=== PATIENT | male | born 1950 | race Caucasian/White ===

== ENCOUNTER 2019-06-06 07:24 | Emergency (ER) | payer MEDICARE, SELFPAY ==
[2019-06-06] VITALS (7 sets, daily range): BP systolic 124–146; BP diastolic 69–97; PULSE 67–83; RESP 16–20; TEMP 36.7; O2SAT 94–99; BMI 37.9
--- NOTE | 2019-06-06 07:43 | DI.RAD.S_ITS ---
PROCEDURE: XR CHEST 1V INDICATIONS: Possible stroke TECHNIQUE: One view of the chest was acquired. COMPARISON: None. FINDINGS: Surgical changes and devices: None. Lungs and pleura: Lungs are clear. No pleural effusions or pneumothorax. Mediastinum: Mediastinal contours appear normal. Heart size is normal. Bones and chest wall: No suspicious bony lesions. Overlying soft tissues appear unremarkable. IMPRESSION: No acute cardiopulmonary disease process. Dictated by: Imelda Ulloa MD, PhD on 06/06/2019 at 8:15 Approved by: Imelda Ulloa MD, PhD on 06/06/2019 at 8:15
--- NOTE | 2019-06-06 07:43 | ED_ITS ---
HPI - General Adult General Chief complaint: Dizziness Stated complaint: N/V Time Seen by Provider: 06/06/19 07:25 Source: patient Mode of arrival: EMS Limitations: no limitations History of Present Illness HPI narrative: 68-year-old gentleman with type 2 diabetes hyperlipidemia hypertension was awoken dramatically this morning with an episode of acute vertigo. Was associated with nausea and diaphoresis no pain and no dyspnea. He felt that the room was ?taking by? rather than spinning or typical explanations that are usually associated with complaints of vertigo. He states he was in his usual state of health when he went to bed and has no complaints of unusual medical or physical symptoms in the preceding number of weeks. He reports no focal neurologic deficits, no vision acuity or auditory changes. He got dressed and was going to drive himself to the emergency room but had another episode of acute nausea associated with dizziness and ended up calling 911. Once medics arrived he became profusely diaphoretic that was alleviated somewhat with the addition of Zofran. Upon arrival in the emergency department he is awake appropriate and able to give a complete and coherent history . Denies prior stroke or cardiac events. Related Data Home Medications Medication Instructions Recorded Confirmed aspirin [Adult Low Dose Aspirin] 81 mg PO DAILY 06/06/19 06/06/19 glipizide 10 mg PO BID 06/06/19 06/06/19 levothyroxine 200 mcg PO DAILY 06/06/19 06/06/19 metformin 1,000 mg PO BID 06/06/19 06/06/19 valsartan-hydrochlorothiazide 1 tab PO DAILY 06/06/19 06/06/19 Allergies Allergy/AdvReac Type Severity Reaction Status Date / Time losartan AdvReac Cough Verified 06/06/19 07:43 Review of Systems Review of Systems Narrative: All systems reviewed and are unremarkable except as noted in HPI and below Patient History Medical History Hyperlipidemia (Acute) Hypothyroidism (acquired) (Acute) Type 2 diabetes mellitus (Acute) Social History Smoking Status: Never smoker Smoking Status: Never smoker alcohol intake frequency: a few times a week Alcohol type: beer Substance Use Type: marijuana Exam Narrative Exam Narrative: General: Healthy appearing, mildly diaphoretic but in no acute distress. Able to give a complete and coherent history. Well-nourished well- developed HEENT: Moist mucous membranes, normal sclera with reactive pupils, no nystagmus with any positional movements. Neck: No JVD, supple Respiratory: Lungs are clear to auscultation, no wheezing no rales no rhonchi. Full and symmetrical air movement Cardiac: Regular rate and rhythm no murmurs no bruits Abdomen: Soft nontender good bowel tones, no flank pain Skin: Warm and dry, no rashes Neurologic: Grossly neurologically intact with no obvious asymmetries or abnormalities, normal speech fluency and not complaining of global weakness Extremities: No trauma, well perfused Psych: Cooperative, appropriate insight and affect Initial Vital Signs Initial Vital Signs: Vital Signs Temperature 98.0 F 06/06/19 07:33 Pulse Rate 83 06/06/19 07:33 Respiratory Rate 16 06/06/19 07:33 Blood Pressure 143/97 H 06/06/19 07:33 Pulse Oximetry 94 06/06/19 07:33 Course Orders Ordered: ED Orders 06/06/19 07:43 CT Stroke Stat XR chest 1V Stat Urine Drug Screen, Rapid Stat EKG-12 Lead Stat 06/06/19 07:50 Complete Blood Count AUTO DIFF Stat Comprehensive Metabolic Panel Stat Partial Thromboplastin Time Stat Prothrombin Time INR Stat Troponin & CK Cardiac Panel Stat 06/06/19 10:43 EKG-12 Lead Stat 06/06/19 10:51 Troponin I Stat Discontinued Medications Aspirin (Aspirin Chew) 324 mg PO NOW ONE Stop: 06/06/19 07:45 Last Admin: 06/06/19 07:52 Dose: 324 mg Documented by: RIC Sodium Chloride (Normal Saline 0.9%) 1,000 mls @ 1,000 mls/hr IV BOLUS ONE Stop: 06/06/19 09:42 Last Infusion: 06/06/19 10:07 Dose: 0 mls/hr Documented by: Admin: 06/06/19 08:51 Dose: 1,000 mls/hr Documented by: RIC Vital Signs Vital signs: Vital Signs - 8 hr 06/06/19 07:33 06/06/19 08:13 06/06/19 09:10 Temperature 98.0 F Pulse Rate 83 80 70 Respiratory Rate 16 20 16 Blood Pressure 143/97 H Blood Pressure [Left Arm] 146/87 H 130/70 Pulse Oximetry 94 96 06/06/19 09:50 06/06/19 10:04 06/06/19 10:54 Temperature Pulse Rate 70 67 70 Respiratory Rate 16 16 16 Blood Pressure Blood Pressure [Left Arm] 130/70 124/74 138/69 Pulse Oximetry 99 97 98 Medical Decision Making Medical Records Medical records reviewed: Yes I reviewed the patient's medical records. Lab Data Lab results reviewed: Yes I reviewed the patient's lab results. Result diagrams: 06/06/19 07:50 06/06/19 07:50 Labs: Lab Results 06/06/19 06/06/19 06/06/19 Range/Units 07:50 07:50 07:50 WBC 7.9 (4.5-11.0) X10^3/uL RBC 4.67 (4.5-5.9) X10^6/uL Hgb 14.5 (13.5-17.5) g/dL Hct 42.3 (41-53) % MCV 90.6 (80-100) fL MCH 31.0 (26-34) PG MCHC 34.2 (30-36) % RDW 13.0 (11.6-14.8) % Plt Count 182 (150-400) X10^3/uL Neut % (Auto) 51.0 (50-75) % Lymph % (Auto) 33.9 (25-40) % [place] % (Auto) 11.4 (3-14) % Eos % (Auto) 3.2 (2-4) % Baso % (Auto) 0.5 (0-2) % Neut # (Auto) 4000 (6230-2447) /uL Lymph # (Auto) 2700 (1708-5308) /uL [place] # (Auto) 900 (0-900) /uL Eos # (Auto) 300 (0-450) /uL Baso # (Auto) 0 (0-100) /uL PT 10.7 (10.1-12.7) SECONDS INR 0.9 (0.9-1.3) APTT 28 (26.4-36.2) SECONDS Sodium 135 L (137-145) mmol/L Potassium 4.0 (3.4-5.1) mmol/L Chloride 102 (98-107) mmol/L Carbon Dioxide 23 (22-32) mmol/L BUN 19 (9-20) mg/dL Creatinine 0.99 (0.66-1.25) mg/dL Estimated GFR > 60.0 (>60) mL/min BUN/Creatinine Ratio 19.2 (6-22) Glucose 269 H (80-110) mg/dL Calcium 9.3 (8.4-10.2) mg/dL Total Bilirubin 0.4 (0.2-1.3) mg/dL AST 23 (17-59) IU/L ALT 22 (<50) IU/L Alkaline Phosphatase 65 (38-126) U/L Total Creatine Kinase 58 (55-170) U/L CK-MB (CK-2) TNP CK-MB (CK-2) Rel Index TNP Troponin I < 0.012 (0.01-0.034) ng/mL Total Protein 7.1 (6.3-8.2) g/dL Albumin 4.3 (3.5-5.0) g/dL Globulin 2.8 (1.7-4.1) g/dL Albumin/Globulin Ratio 1.5 (1.0-2.8) 06/06/19 Range/Units 10:51 WBC (4.5-11.0) X10^3/uL RBC (4.5-5.9) X10^6/uL Hgb (13.5-17.5) g/dL Hct (41-53) % MCV (80-100) fL MCH (26-34) PG MCHC (30-36) % RDW (11.6-14.8) % Plt Count (150-400) X10^3/uL Neut % (Auto) (50-75) % Lymph % (Auto) (25-40) % [place] % (Auto) (3-14) % Eos % (Auto) (2-4) % Baso % (Auto) (0-2) % Neut # (Auto) (4256-8483) /uL Lymph # (Auto) (7007-0346) /uL [place] # (Auto) (0-900) /uL Eos # (Auto) (0-450) /uL Baso # (Auto) (0-100) /uL PT (10.1-12.7) SECONDS INR (0.9-1.3) APTT (26.4-36.2) SECONDS Sodium (137-145) mmol/L Potassium (3.4-5.1) mmol/L Chloride (98-107) mmol/L Carbon Dioxide (22-32) mmol/L BUN (9-20) mg/dL Creatinine (0.66-1.25) mg/dL Estimated GFR (>60) mL/min BUN/Creatinine Ratio (6-22) Glucose (80-110) mg/dL Calcium (8.4-10.2) mg/dL Total Bilirubin (0.2-1.3) mg/dL AST (17-59) IU/L ALT (<50) IU/L Alkaline Phosphatase (38-126) U/L Total Creatine Kinase (55-170) U/L CK-MB (CK-2) CK-MB (CK-2) Rel Index Troponin I < 0.012 (0.01-0.034) ng/mL Total Protein (6.3-8.2) g/dL Albumin (3.5-5.0) g/dL Globulin (1.7-4.1) g/dL Albumin/Globulin Ratio (1.0-2.8) Imaging Data CT scan - head: Radiologist's Impression: Verbal interaction with Radiology, Dr. Ulloa. Negative head CT. ECG Data Attestation: I personally reviewed and interpreted this ECG as follows: Interpretation: Normal sinus rhythm at a rate of 80 Occasional PVC Left axis deviation No evidence of ischemia MDM Narrative Medical decision making narrative: Patient typically uses THC to help sleep at night. Last night he notes that he had a couple of extra drinks. This combination may be contributing however he certainly is showing no signs of intoxication or impairment this time. Initial workup is relatively unremarkable. Will give him a L of fluid on the off chance that there is a bit of dehydration/hangover from the drinking last night. Will repeat a 2 hour troponin and EKG and if he remains clinically asymptomatic and doing well anticipate discharge after those decision-making points have been evaluated. Repeat troponin is negative. The possibility of Meniere's disease or vestibular neuritis are entertained but felt to be less likely at this point. 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 If he continues to have episodes of recurrent vertigo he will follow-up with his primary care physician and may eventually need referral to ENT Discharge Plan Departure Patient Disposition: Home Clinical Impression: Vertigo Instructions: Orthostatic Hypotension Activity Restrictions/Additional Instructions: Thank you for coming in today Your evaluation today included a head CT, blood work, chest x-ray, EKG with repeat cardiac enzymes and the entire workup was quite reassuring. I did not find any life-threatening explanation for your symptoms. I suspect that the extra drinking and not drinking quite enough plain water last night probably contributed. I would encourage you to keep yourself hydrated enough that your urine is consistently light yellow. If you have recurrent symptoms, headaches, fevers, difficulty speaking or thinking, developed any numbness tingling or chest pain would be very appropriate to return to the emergency department for re-evaluation. Prescriptions: No Action aspirin [Adult Low Dose Aspirin] 81 mg Tablet,Delayed Release (Dr/Ec) 81 mg PO DAILY RF: 0 glipizide 10 mg Tablet 10 mg PO BID RF: 0 metformin 1,000 mg Tablet Extended Release 24hr 1,000 mg PO BID RF: 0 levothyroxine 200 mcg Capsule 200 mcg PO DAILY RF: 0 valsartan-hydrochlorothiazide 160-25 mg Tablet 1 tab PO DAILY RF: 0
--- NOTE | 2019-06-06 07:43 | DI.CT.S_ITS ---
PROCEDURE: CT STROKE INDICATIONS: VISION CHANGE TECHNIQUE: Noncontrast 4.5 mm thick angled axial sections acquired from the foramen magnum to the vertex, with coronal reformats. For radiation dose reduction, the following was used: automated exposure control, adjustment of mA and/or kV according to patient size. COMPARISON: None. FINDINGS: Image quality: Excellent. CSF spaces: Basal cisterns are patent. No extra-axial fluid collections. The ventricles are symmetric in size and shape. Brain: No intracranial bleeds or masses. There is cerebral volume loss for age, with resultant ventricular and sulcal prominence. There are periventricular and deep white matter chronic small vessel ischemic changes. There is intracranial internal carotid artery atherosclerosis. Skull and face: Calvarium and visualized facial bones appear intact, without suspicious lesions. Sinuses: Visualized sinuses and mastoids are clear. IMPRESSION: No acute intracranial disease process. Findings telephoned to Dr. Norma Guzman on 06/06/2019 at 0811 hrs. This study fulfills neurological imaging criteria for inclusion or exclusion of acute stroke therapies based on available published neurological guidelines. Dictated by: Imelda Ulloa MD, PhD on 06/06/2019 at 8:11 Approved by: Imelda Ulloa MD, PhD on 06/06/2019 at 8:13
[2019-06-06] MEDS: ASPIRIN 81 MG CHEW TAB 324 MG PO (07:52)
[2019-06-06 08:11] LABS: Add Manual Diff / Slide Review NO; Basophils Absolute Auto 0 /uL (0-100); Basophils Percent Auto 0.5 % (0-2); Eosinophils Absolute Auto 300 /uL (0-450); Eosinophils Percent Auto 3.2 % (2-4); Hematocrit 42.3 % (41-53); Hemoglobin 14.5 g/dL (13.5-17.5); Lymphocytes Absolute Auto 2700 /uL (1100-4500); Lymphocytes Percent Auto 33.9 % (25-40); Mean Corpuscular HGB Conc 34.2 % (30-36); Mean Corpuscular Volume 90.6 fL (80-100); Monocytes Absolute Auto 900 /uL (0-900); Monocytes Percent Auto 11.4 % (3-14); Neutrophils Absolute Auto 4000 /uL (1500-7000); Platelet Count 182 X10^3/uL (150-400); Red Blood Cell Count 4.67 X10^6/uL (4.5-5.9); White Blood Cell Count 7.9 X10^3/uL (4.5-11.0)
[2019-06-06 08:17] LABS: INR 0.9 (0.9-1.3); Prothrombin Time 10.7 SECONDS (10.1-12.7)
[2019-06-06 08:19] LABS: PTT Partial Thromboplastin Tim 28 SECONDS (26.4-36.2)
[2019-06-06 08:22] LABS: Alanine Aminotransferase 22 IU/L (<50); Albumin 4.3 g/dL (3.5-5.0); Albumin Globulin Ratio 1.5 (1.0-2.8); Alkaline Phosphatase 65 U/L (38-126); Aspartate Aminotransferase 23 IU/L (17-59); BUN Creatinine Ratio 19.2 (6-22); Bilirubin Total 0.4 mg/dL (0.2-1.3); Blood Urea Nitrogen 19 mg/dL (9-20); Calcium 9.3 mg/dL (8.4-10.2); Carbon Dioxide 23 mmol/L (22-32); Chloride 102 mmol/L (98-107); Creatine Kinase 58 U/L (55-170); Estimated Glomerular Filt Rate > 60.0 mL/min (>60); Globulin 2.8 g/dL (1.7-4.1); Glucose 269 mg/dL (80-110); HEMOLYSIS < 15 (0-50); Sodium 135 mmol/L (137-145); Total Protein 7.1 g/dL (6.3-8.2)
[2019-06-06 08:33] LABS: Troponin I < 0.012 ng/mL (0.01-0.034)
[2019-06-06] MEDS: SODIUM CHLORIDE 0.9% 1,000 ML 1000 ML IV (08:51)
--- NOTE | 2019-06-06 09:43 | PC.NURSE ---
SPOKE TO DR JIM ABOUT PT'S INABILITY TO PROVIDE URINE SAMPLE. DR JIM STATED SHE WAS OKAY WITHOUT THOSE RESULTS.
[2019-06-06 11:22] LABS: Troponin I < 0.012 ng/mL (0.01-0.034)
--- NOTE | 2019-06-06 11:31 | PC.NURSE ---
0745 Patient reports he takes 5mg THC each night to help him sleep. He also reports he drank around3 drinks last night, which is not normal for him. States I've been thinking, I'm not sure if I drink enough water.
[2019-06-06 14:05] LABS: UR Morphine/Opiate cutoff 300 Negative (Negative); Ur Creatinine Normal (Normal); Ur Specific Gravity Normal (Normal); Urine Amphetamines Negative (Negative); Urine Barbiturates Negative (Negative); Urine Benzodiazepines Negative (Negative); Urine Cocaine Negative (Negative); Urine MDMA Negative (Negative); Urine Methadone Negative (Negative); Urine Methamphetamines Negative (Negative); Urine Oxycodone Negative (Negative); Urine Phencyclidine Negative (Negative); Urine Tetrahydrocannabinol Positive (Negative); Urine Tricyclic Antidepressant Negative (Negative); Urine pH Normal (Normal)
== END 2019-06-06 12:39 | disposition home or self-care (01) ==
PROVIDERS: Emergency Provider Emergency Medicine
DX: R42 Dizziness and giddiness (principal); R11.0 Nausea; E11.9 Type 2 diabetes mellitus without complications; E78.5 Hyperlipidemia, unspecified; I10 Essential (primary) hypertension; H53.9 Unspecified visual disturbance
CPT/HCPCS: 36415; 70450; 71045; 80053; 80305; 81003; 82550; 84484; 85025; 85610; 85730; 93005; 96360; 99284; 99285

== ENCOUNTER → 2019-10-11 08:52 | Outpatient (CLI) | payer MEDICARE, SELFPAY ==
[2019-10-11 09:55] LABS: Hemoglobin 13.3 g/dL (13.5-17.5); Mean Corpuscular HGB Conc 34.1 % (30-36); Mean Corpuscular Hemoglobin 31.3 PG (26-34); Mean Corpuscular Volume 91.9 fL (80-100); Platelet Count 188 X10^3/uL (150-400); Red Blood Cell Count 4.24 X10^6/uL (4.5-5.9); Red Cell Distribution Width 13.2 % (11.6-14.8); White Blood Cell Count 7.9 X10^3/uL (4.5-11.0)
[2019-10-11 10:02] LABS: Hemoglobin A1C% w Est Avg Glu 7.2 % (4.0-6.0)
[2019-10-11 10:40] LABS: Microalbumi Creatinin Ratio Ur 9.6 ug/mg CR (<30); Microalbumin Urine Random 2.2 mg/dL (0-1.6)
[2019-10-11 10:46] LABS: Alanine Aminotransferase 24 IU/L (<50); Albumin 4.3 g/dL (3.5-5.0); Alkaline Phosphatase 50 U/L (38-126); Aspartate Aminotransferase 26 IU/L (17-59); BUN Creatinine Ratio 20.8 (6-22); Bilirubin Total 0.7 mg/dL (0.2-1.3); Blood Urea Nitrogen 20 mg/dL (9-20); Calcium 9.4 mg/dL (8.4-10.2); Carbon Dioxide 26 mmol/L (22-32); Chloride 102 mmol/L (98-107); Estimated Glomerular Filt Rate > 60.0 mL/min (>60); Globulin 2.2 g/dL (1.7-4.1); Glucose 108 mg/dL (80-110); HEMOLYSIS < 15 (0-50); Sodium 138 mmol/L (137-145); Total Protein 6.5 g/dL (6.3-8.2)
[2019-10-11 11:09] LABS: Prostate Specific Antigen Scrn 1.76 ng/mL (0.1-4.0); TSH w/ Reflex to FT4 1.42 uIU/mL (0.47-4.68)
== END ==
PROVIDERS: Referring Provider Internal Medicine; Visit Provider Internal Medicine
DX: E11.40 Type 2 diabetes mellitus with diabetic neuropathy, unspecified (principal); E03.9 Hypothyroidism, unspecified; Z12.5 Encounter for screening for malignant neoplasm of prostate; I10 Essential (primary) hypertension
CPT/HCPCS: 36415; 80053; 82043; 82570; 83036; 84443; 85027; G0103

== ENCOUNTER → 2020-06-01 10:18 | Outpatient (CLI) | payer MEDICARE, SELFPAY ==
[2020-06-01 10:54] LABS: Add Manual Diff / Slide Review NO; Basophils Absolute Auto 0 /uL (0-100); Basophils Percent Auto 0.6 % (0-2); Eosinophils Absolute Auto 200 /uL (0-450); Eosinophils Percent Auto 3.6 % (2-4); Hematocrit 40.6 % (41-53); Hemoglobin 13.7 g/dL (13.5-17.5); Lymphocytes Absolute Auto 2100 /uL (1100-4500); Lymphocytes Percent Auto 33.1 % (25-40); Mean Corpuscular HGB Conc 33.7 % (30-36); Mean Corpuscular Hemoglobin 30.2 PG (26-34); Mean Corpuscular Volume 89.7 fL (80-100); Monocytes Absolute Auto 600 /uL (0-900); Monocytes Percent Auto 9.5 % (3-14); Neutrophils Absolute Auto 3400 /uL (1500-7000); Neutrophils Percent Auto 53.2 % (50-75); Platelet Count 178 X10^3/uL (150-400); Red Blood Cell Count 4.52 X10^6/uL (4.5-5.9); Red Cell Distribution Width 12.9 % (11.6-14.8); White Blood Cell Count 6.4 X10^3/uL (4.5-11.0)
[2020-06-01 11:02] LABS: Hemoglobin A1C% w Est Avg Glu 6.6 % (4.0-6.0)
[2020-06-01 11:12] LABS: Alanine Aminotransferase 17 IU/L (<50); Albumin 4.1 g/dL (3.5-5.0); Albumin Globulin Ratio 1.6 (1.0-2.8); Alkaline Phosphatase 63 U/L (38-126); Aspartate Aminotransferase 24 IU/L (17-59); BUN Creatinine Ratio 19.1 (6-22); Bilirubin Total 0.5 mg/dL (0.2-1.3); Blood Urea Nitrogen 21 mg/dL (9-20); Calcium 9.7 mg/dL (8.4-10.2); Carbon Dioxide 28 mmol/L (22-32); Chloride 103 mmol/L (98-107); Cholesterol 110 mg/dL (140-199); Estimated Glomerular Filt Rate > 60.0 mL/min (>60); Globulin 2.6 g/dL (1.7-4.1); Glucose 126 mg/dL (80-110); HDL Cholesterol 27 mg/dL (40-60); HEMOLYSIS < 15 (0-50); LDL Cholesterol Calculated 37 mg/dL (<100); Potassium 4.4 mmol/L (3.4-5.1); Sodium 137 mmol/L (137-145); Total Protein 6.7 g/dL (6.3-8.2); Triglycerides 228 mg/dL (35-150)
[2020-06-01 11:28] LABS: Vitamin D 25 Hydroxy (D3) 23.9 ng/mL (30.0-100.0)
[2020-06-01 11:30] LABS: Free T3, Triiodothyronine Free 2.94 pg/mL (2.77-5.27); Free T4, Direct Thyroxine 1.29 ng/dL (0.78-2.19)
[2020-06-01 11:43] LABS: Prostate Specific Antigen Scrn 2.39 ng/mL (0.1-4.0)
[2020-06-01 11:44] LABS: Thyroid Stimulating Hormone 0.069 uIU/mL (0.47-4.68)
== END ==
PROVIDERS: PCP Family Medicine; Referring Provider Family Medicine; Visit Provider Family Medicine
DX: E03.9 Hypothyroidism, unspecified (principal); E11.9 Type 2 diabetes mellitus without complications; E78.5 Hyperlipidemia, unspecified; Z12.5 Encounter for screening for malignant neoplasm of prostate
CPT/HCPCS: 36415; 80053; 80061; 82306; 83036; 84439; 84443; 84481; 85025; G0103

== ENCOUNTER → 2020-06-04 11:39 | Outpatient (CLI) | payer MEDICARE, SELFPAY ==
--- NOTE | 2020-06-04 11:42 | DI.RAD.S_ITS ---
PROCEDURE: XR FOOT LT MIN 3V INDICATIONS: bunion TECHNIQUE: 3 views of the foot were acquired. COMPARISON: None. FINDINGS: Bones: No fractures or dislocations. No suspicious bony lesions. Large plantar calcaneal bone spur. Mild midfoot osteoarthritis. Mild 1st CMC joint osteoarthritis. Soft tissues: Large bunion. No tibiotalar joint effusion. Achilles tendon appears normal. IMPRESSION: Large medial bunion. Osteoarthritis. Dictated by: Imelda Ulloa MD, PhD on 06/04/2020 at 17:55 Approved by: Imelda Ulloa MD, PhD on 06/04/2020 at 17:56
== END ==
PROVIDERS: PCP Family Medicine; Referring Provider Family Medicine; Visit Provider Family Medicine
DX: M21.612 Bunion of left foot (principal); M19.072 Primary osteoarthritis, left ankle and foot
CPT/HCPCS: 73630

== ENCOUNTER → 2021-06-11 10:28 | Outpatient (CLI) | payer MEDICARE, SELFPAY ==
[2021-06-11 13:07] LABS: TSH w/ Reflex to FT4 4.48 uIU/mL (0.47-4.68)
== END ==
PROVIDERS: PCP Family Medicine; Referring Provider Internal Medicine; Visit Provider Internal Medicine
DX: E03.9 Hypothyroidism, unspecified (principal)
CPT/HCPCS: 36415; 84443

== ENCOUNTER → 2021-07-25 16:29 | Outpatient (CLI) | payer MEDICARE, SELFPAY ==
[2021-07-25 18:11] LABS: TSH w/ Reflex to FT4 1.93 uIU/mL (0.47-4.68)
== END ==
PROVIDERS: PCP Family Medicine; Referring Provider Internal Medicine; Visit Provider Internal Medicine
DX: E03.9 Hypothyroidism, unspecified (principal)
CPT/HCPCS: 36415; 84443

== ENCOUNTER 2021-09-08 06:04 | Inpatient (IN) | payer MEDICARE, SELFPAY ==
[2021-09-08] VITALS (15 sets, daily range): BP systolic 135–179; BP diastolic 67–96; PULSE 55–78; RESP 16–29; TEMP 35.6–36.6; O2SAT 95–99; BMI 37.1
--- NOTE | 2021-09-08 06:11 | DI.CT.S_ITS ---
PROCEDURE: CT STROKE INDICATIONS: stroke, R side face TECHNIQUE: Noncontrast 4.5 mm thick angled axial sections acquired from the foramen magnum to the vertex, with coronal reformats. For radiation dose reduction, the following was used: automated exposure control, adjustment of mA and/or kV according to patient size. COMPARISON: [facility], CT, CT STROKE, 06/06/2019, 7:54. FINDINGS: Image quality: Excellent. CSF spaces: Basal cisterns are patent. No extra-axial fluid collections. The ventricles are symmetric in size and shape. Brain: No intracranial bleeds or masses. There is cerebral volume loss for age, with resultant ventricular and sulcal prominence. There are periventricular and deep white matter chronic small vessel ischemic changes. There is intracranial internal carotid artery atherosclerosis. Skull and face: Calvarium and visualized facial bones appear intact, without suspicious lesions. Sinuses: Visualized sinuses and mastoids are clear. IMPRESSION: 1. No CT evidence of acute intracranial abnormalities. 2. No significant changes from previous study. Findings were reported to ER clinician Dr. Lal by the preliminary interpreter deaf at 6:44 a.m. On 09/08/2021. This study fulfills neurological imaging criteria for inclusion or exclusion of acute stroke therapies based on available published neurological guidelines. Dictated by: Rafa Recinos M.D. on 09/08/2021 at 7:40 Approved by: Rafa Recinos M.D. on 09/08/2021 at 7:42
--- NOTE | 2021-09-08 06:12 | DI.CT.S_ITS ---
PROCEDURE: CT ANGIO HEAD AND NECK INDICATIONS: stroke, R side face TECHNIQUE: After the administration of intravenous contrast, 1 mm thick sections acquired from the aortic arch through the [place] of [place]. Post-contrast 4.5 mm thick sections then re-acquired from the foramen magnum to the vertex. 3-dimensional shcetbj-qfaqnmjxw-zqienxglke (MIP) and/or volume rendering reformats were acquired of the central intracranial vasculature and neck separately. For radiation dose reduction, the following was used: automated exposure control, adjustment of mA and/or kV according to patient size. COMPARISON: [facility], CT, CT STROKE, 09/08/2021, 6:21. FINDINGS: Image quality: Excellent. BRAIN: CSF spaces: Ventricles are normal in size and shape. Basal cisterns are patent. No extra-axial fluid collections. Brain: No midline shift. No intracranial bleeds or masses. Green-white matter interface appears intact. No area of abnormal intracranial enhancement is seen. Skull and face: Calvarium and facial bones appear intact, without suspicious lesions. Orbits appear normal. Sinuses: Sinuses and mastoids are clear. HEAD CT ANGIOGRAPHY: Anterior circulation: Intracranial internal carotid arteries are normal in size and flow. The flow within the paired anterior cerebral arteries is normal and symmetric. The flow within the middle cerebral arteries is normal and symmetric. The anterior communicating artery is seen. No aneurysms are seen. Posterior circulation: Visualized portions of the vertebral arteries demonstrate normal caliber, and join to form a normal appearing basilar artery. Flow within the posterior cerebral arteries is normal and symmetric. No aneurysms are seen. NECK CT ANGIOGRAPHY: Carotid system: The great vessels demonstrate a conventional anatomy as they arise from the aortic arch. The origins of the common carotid arteries appear patent. The common carotid arteries demonstrate normal caliber and courses. The bifurcation regions are both widely patent. The internal carotid arteries demonstrate normal calibers and courses. Posterior circulation: The origins of the vertebral arteries both appear widely patent. The more superior extracranial portions of both vertebral arteries also demonstrate normal courses and calibers. They join to form a normal appearing basilar artery. Soft tissues: Visualized neck soft tissues demonstrate no suspicious abnormalities. Bones: No suspicious bony lesions. Visualized cervical spine appears normally aligned. IMPRESSION: 1. No CT evidence of acute intracranial abnormalities. No area of abnormal intracranial enhancement. 2. No hemodynamically significant stenosis or aneurysm is seen in intracranial circulation. 3. No hemodynamically significant stenosis are noted in bilateral neck arteries. No discrepancies from preliminary reading. Any quantitative measurements of stenosis were performed using NASCET criteria. Dictated by: Rafa Recinos M.D. on 09/08/2021 at 7:42 Approved by: Rafa Recinos M.D. on 09/08/2021 at 7:44
--- NOTE | 2021-09-08 06:17 | PC.NURSE ---
to ct per stretcher
--- NOTE | 2021-09-08 06:30 | ED_ITS ---
HPI - Neuro Symptoms/Deficit General Chief Complaint: Neuro Symptoms/Deficit Stated Complaint: Slurred speech Time Seen by Provider: 09/08/21 06:06 Source: patient Mode of arrival: Ambulatory History of Present Illness HPI Narrative: 71-year-old male nonsmoker with history of diabetes, hyperlipidemia and hypertension presents with his in the chief complaint of neurologic symptoms noted upon waking this morning just prior to arrival. He was in his normal state of health when he went to bed at 10:30 a.m. and awoke with right-sided facial droop and slurring of speech. He has no reported blurred vision, dizziness, numbness, tingling or weakness of his extremities. He has not activated as a code stroke as his last known well is greater than 4.5 hours and his BAUMAN score is low, however he is rapidly taken to CT/CTA nonetheless. He denies any recent trauma or head injury and takes no blood thinners. He denies any recent problems with blood in his urine or bowels. He denies any change in medications. On Anticoagulants: No Related Data Home Medications Medication Instructions Recorded Confirmed aspirin 81 mg tablet,delayed 81 mg PO DAILY 06/06/19 06/04/20 release (Adult Low Dose Aspirin) glipizide 10 mg tablet 10 mg PO BID 06/06/19 09/08/21 metformin 1,000 mg tablet,extended 1,000 mg PO BID 06/06/19 06/04/20 release 24hr valsartan 160 1 tab PO DAILY 06/06/19 06/04/20 mg-hydrochlorothiazide 25 mg tablet levothyroxine 100 mcg tablet 200 mcg PO DAILY 04/16/20 06/04/20 sildenafil 100 mg tablet 100 mg PO DAILY PRN 04/16/20 06/04/20 trazodone 50 mg tablet 50 mg PO BEDTIME 04/16/20 09/08/21 Previous Rx's Medication Instructions Recorded lovastatin 10 mg tablet See Rx Instructions .Route 05/29/21 .COMPLEX #90 tabs Allergies Allergy/AdvReac Type Severity Reaction Status Date / Time losartan AdvReac Cough Verified 06/04/20 10:53 Review of Systems Review of Systems Narrative: GENERAL: Denies chills, fatigue, malaise, fever, sweats. HEENT: Denies sinus pain, ear pain, sore throat, difficulty swallowing, dizziness. RESPIRATORY: Denies dyspnea, cough, wheezing, hemoptysis, sputum. CARDIOVASCULAR: Denies chest pain, palpitations, orthopnea, edema, GASTROINTESTINAL: Denies nausea, vomiting, abdominal pain, diarrhea, constipation, melena. : Denies dysuria, frequency, incontinence, hematuria, urinary retention. MUSCULOSKELETAL: denies weakness, joint pain, or bony pain SKIN: Denies rash, skin lesions, or other NEUROLOGIC: See HPI PSYCHIATRIC: No concerning psychosocial issues. 12 point review of systems is negative except for those stated above Hematologic/Lymphatic On Anticoagulants: No Patient History Medical History Bunion, left foot Hyperlipidemia Hypothyroidism (acquired) Screening for prostate cancer Type 2 diabetes mellitus Vitamin D deficiency Surgical History History of appendectomy Hx of cataract surgery Family History Father Stroke Mother COPD (chronic obstructive pulmonary disease) Social History household members: significant other Smoking Status: Never smoker alcohol intake: current Smoking Status: Never smoker alcohol intake frequency: a few times a week Alcohol type: beer Substance Use Type: marijuana Exam Narrative Exam Narrative: GENERAL: [71] year old patient appears stated age. Well-developed patient, in mild distress. GCS 15 HEAD: Atraumatic. Normocephalic. EYES: Pupils equal round and reactive. Extraocular motions intact. No scleral icterus. No injection or drainage. ENT: Nose without bleeding, purulent drainage. Throat without erythema, tonsillar hypertrophy or exudate. Airway patent. NECK: Trachea midline. Non tender CARDIOVASCULAR: Regular rate and rhythm without murmurs, gallops, or rubs. RESPIRATORY: Clear to auscultation. Breath sounds equal bilaterally. No wheezes, rales, or rhonchi. GASTROINTESTINAL: Abdomen soft, non-tender, nondistended. EXTREMITIES: No edema or joint tenderness. BACK: Nontender without deformity or crepitance. No flank tenderness. NEURO: AOx3. SKIN: No rash or erythema of visible areas Initial Vital Signs Initial Vital Signs: Vital Signs Pulse Rate 74 09/08/21 06:12 Respiratory Rate 18 09/08/21 06:12 Blood Pressure 179/96 H 09/08/21 06:12 Pulse Oximetry 98 09/08/21 06:12 Oxygen Delivery Method 09/08/21 06:12 Scores NIH Stroke Scale Level of Conciousness: Alert, keenly responsive Ask month/age: Answers both questions correctly. Open/close eyes, close hand: Performs both tasks correctly Best gaze horizontal: Normal Visual scott: No visual loss Facial palsy: Partial paralysis, total or near total paralysis of lower face Left arm drift: No drift for full 10 sec Right arm drift: No drift for full 10 sec Left leg drift: No drift for full 5 sec Right leg drift: No drift for full 5 sec Limb ataxia: Absent Sensory on face/arms/legs: Mild to moderate sensory loss, can tell touch Best language: No aphasia, normal Dysarthria: Mild to mod,some slurring Extinction or inattention: No abnormality Total NIH Stroke scale score: 4 Course Orders Ordered: Acetaminophen (Acetaminophen 325 Mg Tablet) 650 mg PO Q6HR [facility] Last Admin: 09/08/21 17:02 Dose: Not Given Documented By: Admin: 09/08/21 13:35 Dose: Not Given Documented By: SRAVAN Aspirin (Aspirin Ec 81 Mg Tablet) 81 mg PO DAILY [facility] Atorvastatin Calcium (Atorvastatin 20 Mg Tablet) 80 mg PO BEDTIME [facility] Last Admin: 09/08/21 20:39 Dose: 80 mg Documented By: SUZAN Clopidogrel Bisulfate (Clopidogrel 75 Mg Tablet) 75 mg PO DAILY [facility] Dextrose (D10w) 250 mls @ 999 mls/hr IV PRN PRN PRN Reason: Hypoglycemia Insulin Human Lispro (Insulin Lispro 100 Unit/Ml 3ml Vial) 0 unit SUBCUT ACHS [facility]; Protocol Last Admin: 09/08/21 20:27 Dose: Not Given Documented By: Admin: 09/08/21 17:00 Dose: 1 unit Documented By: SRAVAN Co-signed By: IAN Admin: 09/08/21 12:29 Dose: Not Given Documented By: SRAVAN Levothyroxine Sodium (Levothyroxine 100 Mcg Tablet) 200 mcg PO DAILY@0600 [facility] Naloxone HCl (Naloxone 0.4 Mg/Ml Vial) 0.1 mg IV Q2MIN PRN PRN Reason: Opiate Reversal Trazodone HCl (Trazodone 50 Mg Tablet) 50 mg PO BEDTIME [facility] Discontinued Medications Aspirin (Aspirin 81 Mg Chew Tab) 324 mg PO NOW ONE Stop: 09/08/21 06:49 Last Admin: 09/08/21 07:16 Dose: 324 mg Documented By: MLM Atorvastatin Calcium (Atorvastatin 20 Mg Tablet) 40 mg PO BEDTIME LINH Clopidogrel Bisulfate (Clopidogrel 75 Mg Tablet) 300 mg PO NOW ONE Stop: 09/08/21 12:30 Last Admin: 09/08/21 14:36 Dose: 300 mg Documented By: LDV Dextrose (Dextrose 50 % In Water 25 Gm/50 Ml Syringe) 25 gm IV PRN PRN PRN Reason: Hypoglycemia Sodium Chloride (Normal Saline 0.9%) 1,000 mls @ 150 mls/hr IV CONT LINH Last Admin: 09/08/21 06:47 Dose: 150 mls/hr Documented By: KP Vital Signs Vital signs: Vital Signs - 8 hr 09/08/21 06:12 Pulse Rate 74 Respiratory Rate 18 Blood Pressure 179/96 H Pulse Oximetry 98 Oxygen Delivery Method Room Air MDM - Neuro Symptoms/Deficit Lab Data Result diagrams: 09/08/21 06:15 09/08/21 06:15 Labs: Lab Results 09/08/21 09/08/21 09/08/21 Range/Units 06:15 06:15 06:15 WBC 8.0 (4.5-11.0) X10^3/uL RBC 4.52 (4.5-5.9) X10^6/uL Hgb 14.1 (13.5-17.5) g/dL Hct 40.6 L (41-53) % MCV 89.8 (80-100) fL MCH 31.1 (26-34) PG MCHC 34.7 (30-36) % RDW 12.6 (11.6-14.8) % Plt Count 215 (150-400) X10^3/uL Neut % (Auto) 48.4 L (50-75) % Lymph % (Auto) 37.0 (25-40) % [place] % (Auto) 10.1 (3-14) % Eos % (Auto) 3.8 (2-4) % Baso % (Auto) 0.7 (0-2) % Neut # (Auto) 3900 (5548-4438) /uL Lymph # (Auto) 3000 (3279-0735) /uL [place]ne # (Auto) 800 (0-900) /uL Eos # (Auto) 300 (0-450) /uL Baso # (Auto) 100 (0-100) /uL PT 10.4 (10.1-12.7) SECONDS INR 0.9 (0.9-1.3) Sodium 140 (137-145) mmol/L Potassium 4.2 (3.4-5.1) mmol/L Chloride 103 (98-107) mmol/L Carbon Dioxide 27 (22-32) mmol/L BUN 23 H (9-20) mg/dL Creatinine 1.16 (0.66-1.25) mg/dL Estimated GFR > 60 (>60) mL/min BUN/Creatinine Ratio 19.8 (6-22) Glucose 224 H (80-110) mg/dL Hemoglobin A1c (4.0-6.0) % Calcium 9.5 (8.4-10.2) mg/dL Total Bilirubin 0.5 (0.2-1.3) mg/dL AST 26 (17-59) IU/L ALT 24 (<50) IU/L Alkaline Phosphatase 60 (38-126) U/L Total Creatine Kinase 67 (55-170) U/L CK-MB (CK-2) TNP CK-MB (CK-2) Rel Index TNP Troponin I < 0.012 (0.01-0.034) ng/mL Total Protein 7.2 (6.3-8.2) g/dL Albumin 4.2 (3.5-5.0) g/dL Globulin 3.0 (1.7-4.1) g/dL Albumin/Globulin Ratio 1.4 (1.0-2.8) Triglycerides (35-150) mg/dL Cholesterol (140-199) mg/dL LDL Cholesterol, Calc (<100) mg/dL HDL Cholesterol (40-60) mg/dL SARS-CoV-2 (PCR) (Negative) 09/08/21 09/08/21 09/08/21 Range/Units 06:15 06:15 07:27 WBC (4.5-11.0) X10^3/uL RBC (4.5-5.9) X10^6/uL Hgb (13.5-17.5) g/dL Hct (41-53) % MCV (80-100) fL MCH (26-34) PG MCHC (30-36) % RDW (11.6-14.8) % Plt Count (150-400) X10^3/uL Neut % (Auto) (50-75) % Lymph % (Auto) (25-40) % [place]ne % (Auto) (3-14) % Eos % (Auto) (2-4) % Baso % (Auto) (0-2) % Neut # (Auto) (2998-9338) /uL Lymph # (Auto) (2024-1619) /uL Duchesne # (Auto) (0-900) /uL Eos # (Auto) (0-450) /uL Baso # (Auto) (0-100) /uL PT (10.1-12.7) SECONDS INR (0.9-1.3) Sodium (137-145) mmol/L Potassium (3.4-5.1) mmol/L Chloride (98-107) mmol/L Carbon Dioxide (22-32) mmol/L BUN (9-20) mg/dL Creatinine (0.66-1.25) mg/dL Estimated GFR (>60) mL/min BUN/Creatinine Ratio (6-22) Glucose (80-110) mg/dL Hemoglobin A1c 7.8 H (4.0-6.0) % Calcium (8.4-10.2) mg/dL Total Bilirubin (0.2-1.3) mg/dL AST (17-59) IU/L ALT (<50) IU/L Alkaline Phosphatase (38-126) U/L Total Creatine Kinase (55-170) U/L CK-MB (CK-2) CK-MB (CK-2) Rel Index Troponin I (0.01-0.034) ng/mL Total Protein (6.3-8.2) g/dL Albumin (3.5-5.0) g/dL Globulin (1.7-4.1) g/dL Albumin/Globulin Ratio (1.0-2.8) Triglycerides 294 H (35-150) mg/dL Cholesterol 164 (140-199) mg/dL LDL Cholesterol, Calc 73 (<100) mg/dL HDL Cholesterol 32 L (40-60) mg/dL SARS-CoV-2 (PCR) Negative (Negative) Imaging Data CT scan - head: Radiologist's Impression: [address] [address] [address] Scan Report Signed Patient: Lico Menard MR#: [id number] : 1950 Acct:[id number] Age/Sex: 71 / M Date of Service: 09/08/21 Loc: ED Accession Number: [id number] ?? Procedure: CT Stroke Ordering Provider: Truman Lal D.O. PROCEDURE:? CT STROKE ? INDICATIONS:? stroke, R side face ? TECHNIQUE:? Noncontrast 4.5 mm thick angled axial sections acquired from the foramen magnum to the vertex, with coronal reformats.? For radiation dose reduction, the following was used:? automated exposure control, adjustment of mA and/or kV according to patient size.? ? COMPARISON:? [facility], CT, CT STROKE, 06/06/2019, 7:54. ? FINDINGS:? Image quality:? Excellent.? ? CSF spaces:? Basal cisterns are patent.? No extra-axial fluid collections.? The ventricles are symmetric in size and shape.? ? Brain:? No intracranial bleeds or masses.? There is cerebral volume loss for age, with resultant ventricular and sulcal prominence.? There are periventricular and deep white matter chronic small vessel ischemic changes.? There is intracranial internal carotid artery atherosclerosis.? ? Skull and face:? Calvarium and visualized facial bones appear intact, without suspicious lesions.? ? Sinuses:? Visualized sinuses and mastoids are clear.? ? IMPRESSION:? 1. No CT evidence of acute intracranial abnormalities. 2. No significant changes from previous study. ? Findings were reported to ER clinician Dr. Lal by the preliminary radio television technical director at 6:44 a.m. On 09/08/2021. ? This study fulfills neurological imaging criteria for inclusion or exclusion of acute stroke therapies based on available published neurological guidelines.? ? ? Dictated by: Rafa Recinos M.D. on 09/08/2021 at 7:40 ? ? Approved by: Rafa Recinos M.D. on 09/08/2021 at 7:42 ? CTA - brain/neck: Radiologist's Impression: Close Brain MRI (Signed) Hoang Onofre - 09/08/21 Head/Neck CTA (Signed) Rafa Recinos - 07/04/[address] (Signed) Rafa Recinos - 09/08/21 Foot X-Ray (Signed) Imelda Ulloa - 06/04/20 DI Result CC 02/07/20 Outside EKG 01/23/20 Chest X-Ray (Signed) Imelda Ulloa - 06/06/[address] (Signed) Imelda Ulloa - 06/06/19 Launch?Image [address] [address] [address] Scan Report Signed Patient: Lico Menard MR#: [id number] : 1950 Acct:[id number] Age/Sex: 71 / M Date of Service: 09/08/21 Loc: ED Accession Number: [id number] ?? Procedure: CT angio head and neck Ordering Provider: Truman Lal D.O. PROCEDURE:? CT ANGIO HEAD AND NECK ? INDICATIONS:? stroke, R side face ? TECHNIQUE:? After the administration of intravenous contrast, 1 mm thick sections acquired from the aortic arch through the [place] of [place].? Post-contrast 4.5 mm thick sections then re-acquired from the foramen magnum to the vertex.? 3-dimensional uouzcle-bnuxdzyxr-dixlpapmvj (MIP) and/or volume rendering reformats were acquired of the central intracranial vasculature and neck separately. For radiation dose reduction, the following was used:? automated exposure control, adjustment of mA and/or kV according to patient size.? ? COMPARISON:? [facility], CT, CT STROKE, 09/08/2021, 6:21. ? FINDINGS:? Image quality:? Excellent.? ? BRAIN:? CSF spaces:? Ventricles are normal in size and shape.? Basal cisterns are patent.? No extra-axial fluid collections.? ? Brain:? No midline shift.? No intracranial bleeds or masses.? Green-white matter interface appears intact.? No area of abnormal intracranial enhancement is seen. ? Skull and face:? Calvarium and facial bones appear intact, without suspicious le sions.? Orbits appear normal.? ? Sinuses:? Sinuses and mastoids are clear.? ? HEAD CT ANGIOGRAPHY:? Anterior circulation:? Intracranial internal carotid arteries are normal in size and flow.? The flow within the paired anterior cerebral arteries is normal and symmetric.? The flow within the middle cerebral arteries is normal and symmetric.? The anterior communicating artery is seen.? No aneurysms are seen.? ? Posterior circulation:? Visualized portions of the vertebral arteries demonstrate normal caliber, and join to form a normal appearing basilar artery.? Flow within the posterior cerebral arteries is normal and symmetric.? No aneurysms are seen.? ? NECK CT ANGIOGRAPHY:? Carotid system:? The great vessels demonstrate a conventional anatomy as they arise from the aortic arch.? The origins of the common carotid arteries appear patent.? The common carotid arteries demonstrate normal caliber and courses.? The bifurcation regions are both widely patent.? The internal carotid arteries demonstrate normal calibers and courses.? ? Posterior circulation:? The origins of the vertebral arteries both appear widely patent.? The more superior extracranial portions of both vertebral arteries also demonstrate normal courses and calibers.? They join to form a normal appearing basilar artery.? ? Soft tissues:? Visualized neck soft tissues demonstrate no suspicious abnormalities.? ? Bones:? No suspicious bony lesions.? Visualized cervical spine appears normally aligned.? IMPRESSION:? 1. No CT evidence of acute intracranial abnormalities.? No area of abnormal intracranial enhancement. 2. No hemodynamically significant stenosis or aneurysm is seen in intracranial circulation. 3. No hemodynamically significant stenosis are noted in bilateral neck arteries. ? No discrepancies from preliminary reading.? ? Any quantitative measurements of stenosis were performed using NASCET criteria.? ? ? Dictated by: Rafa Recinos M.D. on 09/08/2021 at 7:42 ? ? Approved by: Rafa Recinos M.D. on 09/08/2021 at 7:44 ? Discharge Plan Departure Patient Disposition: Admitted As Inpatient Clinical Impression: Cerebrovascular accident Admit Date/Time: 09/08/21 10:22 Admit Provider: Tony Kurtz
[2021-09-08 06:34] LABS: Add Manual Diff / Slide Review NO; Basophils Absolute Auto 100 /uL (0-100); Basophils Percent Auto 0.7 % (0-2); Eosinophils Absolute Auto 300 /uL (0-450); Eosinophils Percent Auto 3.8 % (2-4); Hematocrit 40.6 % (41-53); Hemoglobin 14.1 g/dL (13.5-17.5); Lymphocytes Absolute Auto 3000 /uL (1100-4500); Mean Corpuscular HGB Conc 34.7 % (30-36); Mean Corpuscular Hemoglobin 31.1 PG (26-34); Mean Corpuscular Volume 89.8 fL (80-100); Monocytes Absolute Auto 800 /uL (0-900); Monocytes Percent Auto 10.1 % (3-14); Neutrophils Absolute Auto 3900 /uL (1500-7000); Neutrophils Percent Auto 48.4 % (50-75); Platelet Count 215 X10^3/uL (150-400); Red Blood Cell Count 4.52 X10^6/uL (4.5-5.9); Red Cell Distribution Width 12.6 % (11.6-14.8)
[2021-09-08 06:37] LABS: INR 0.9 (0.9-1.3); Prothrombin Time 10.4 SECONDS (10.1-12.7)
[2021-09-08 06:44] LABS: Alanine Aminotransferase 24 IU/L (<50); Albumin 4.2 g/dL (3.5-5.0); Albumin Globulin Ratio 1.4 (1.0-2.8); Alkaline Phosphatase 60 U/L (38-126); Aspartate Aminotransferase 26 IU/L (17-59); BUN Creatinine Ratio 19.8 (6-22); Bilirubin Total 0.5 mg/dL (0.2-1.3); Blood Urea Nitrogen 23 mg/dL (9-20); Calcium 9.5 mg/dL (8.4-10.2); Carbon Dioxide 27 mmol/L (22-32); Chloride 103 mmol/L (98-107); Creatine Kinase 67 U/L (55-170); Estimated Glomerular Filt Rate > 60 mL/min (>60); Glucose 224 mg/dL (80-110); HEMOLYSIS 33 (0-50); Potassium 4.2 mmol/L (3.4-5.1); Sodium 140 mmol/L (137-145); Total Protein 7.2 g/dL (6.3-8.2)
[2021-09-08] MEDS: SODIUM CHLORIDE 0.9% 1,000 ML 150 ML IV (06:47)
[2021-09-08 06:55] LABS: Troponin I < 0.012 ng/mL (0.01-0.034)
[2021-09-08] MEDS: ASPIRIN 81 MG CHEW TAB 324 MG PO (07:16)
[2021-09-08 07:50] LABS: COVID19 -Nasal RAPID Negative (Negative)
--- NOTE | 2021-09-08 10:45 | DI.MRI.S_ITS ---
PROCEDURE: MR HEAD/BRAIN WO CON INDICATIONS: stroke rule out TECHNIQUE: Noncontrast axial T1 spin echo, axial T2 fast spin echo, sagittal and axial FLAIR, coronal T2 fast spin echo, axial gradient echo, axial diffusion and ADC through the brain. COMPARISON: None. FINDINGS: Image quality: Excellent. CSF Spaces: Basal cisterns are patent. No extra-axial fluid collections. Ventricles are normal in size and shape. Brain: No intracranial masses or hemorrhage. Green/white matter interface is normal. Brainstem appears normal. Diffusion-weighted images demonstrate an 8 millimeter focus of diffusion restriction in the left periventricular white matter/body of caudate of the posterior frontal lobe. Scattered minimal punctate areas of subcortical and periventricular FLAIR seen are consistent with microvascular ischemic disease. No chronic ischemic insults. Normal intravascular flow voids are present. Skull and face: Calvarium has normal marrow signal. Orbits appear normal. Sinuses: Sinuses and mastoids are clear. IMPRESSION: 8 millimeter focus of diffusion restriction in the left periventricular white matter/body of caudate of the posterior frontal lobe consistent with acute ischemia. Findings were discussed with Dr. Daugherty at 13:10. Dictated by: Hoang Onofre M.D. on 09/08/2021 at 12:59 Approved by: Hoang Onofre M.D. on 09/08/2021 at 13:10
[2021-09-08 11:59] LABS: UR Morphine/Opiate cutoff 300 Negative (Negative); Ur Creatinine Normal (Normal); Ur Specific Gravity Normal (Normal); Urine Amphetamines Negative (Negative); Urine Barbiturates Negative (Negative); Urine Benzodiazepines Negative (Negative); Urine Cocaine Negative (Negative); Urine MDMA Negative (Negative); Urine Methadone Negative (Negative); Urine Methamphetamines Negative (Negative); Urine Oxycodone Negative (Negative); Urine Phencyclidine Negative (Negative); Urine Tetrahydrocannabinol Negative (Negative); Urine Tricyclic Antidepressant Negative (Negative); Urine pH Normal (Normal)
--- NOTE | 2021-09-08 12:29 | DI.ECHO.S_ITS ---
[facility]---------+ [facility] +---------+ : : [address] : : : : [id number] : : : : Phone: [phone] Echocardiogram Report + + :Name: DANNI GODOY Study Date: 09/09/2021 Height: 66 in : :[facility] ReadingLocation: Weight: 230 lb : : Gender: Male BSA: 2.1 m2 : :: 1950 Age: 71 yrs BP: 144/82 mmHg: :Reason For Study: STROKE RULE OUT, NIH4 : :Ordering Physician: JACI TRINH : :Misti Dumont Performed By: Kristen Love : :Referring: JACI TRINH D.O. : + + Interpretation Summary The ejection fraction is estimated to be 60-65%. Grade I diastolic dysfunction. The right ventricle is normal in size and function. There is systolic anterior motion of the chordal apparatus. Unable to estimate PASP. The ascending aorta is mildly dilated, 4.0 cm. Procedure: A two-dimensional transthoracic echocardiogram with color flow and Doppler was performed. The study quality was technically adequate. There is no prior echocardiogram noted for this patient. The patient was in sinus rhythm with heart rates between 64-76 bpm during the exam. Left Ventricle: The left ventricle is normal in size. Proximal septal thickening is noted. The ejection fraction is estimated to be 60-65%. Diastolic parameters suggest a relaxation abnormality of the left ventricle, consistent with probable normal filling pressures. Right Ventricle: The right ventricle is normal in size and function. Atria: The left atrial size is normal. Right atrial size is normal. There is no Doppler evidence for an interatrial shunt. Mitral Valve: There is systolic anterior motion of the chordal apparatus. There is trace mitral regurgitation. Aortic Valve: The aortic valve is trileaflet. The aortic valve opens well. There is no aortic valve stenosis. There is trace aortic regurgitation. Tricuspid Valve: The tricuspid valve is normal in structure and function. No tricuspid regurgitation. Pulmonic Valve: The pulmonic valve leaflets are thin and pliable; valve motion is normal. There is a trace or physiologic amount of pulmonic regurgitation. Great Vessels: The aortic root is normal size. The ascending aorta is mildly enlarged. The IVC is of normal diameter and collapses greater than 50% with a sniff. This suggests a low right atrial pressure of 3 mm Hg. Pericardium/ Pleura There is no pericardial effusion. There is no pleural effusion. MMode/2D Measurements & Calculations LVIDd: 4.4 cm LVOT diam: 2.2 cm LVIDs: 2.8 cm Ao root diam: 3.7 cm FS: 35.8 % asc Aorta Diam: 4.0 cm EPSS: 0.80 cm Ao Arch Diam (Prox Trans): 3.0 cm IVSd: 1.0 cm LVPWd: 1.00 cm LV myers. diameter/BSA (cm/m^2): 2.1 LV sys. diameter/BSA (cm/m^2): 1.3 LA A2 area: 24.5 cm2 RA long axis: 5.6 cm LA A4 area: 16.4 cm2 RA area: 14.9 cm2 LA length (vol): 5.4 cm RA vol: 33.4 ml LA vol: 63.7 ml RA : 15.8 ml/m2 LA vol index: 30.0 ml/m2 IVC diam: 1.3 cm RVD1 (basal): 3.7 cm RVD2 (mid): 3.0 cm TAPSE: 2.1 cm Doppler Measurements & Calculations Ao V2 max: 167.8 cm/sec LVOT Max Moreno: 129.3 cm/sec Ao V2 mean: 119.2 cm/sec LV V1 max P.7 mmHg Ao max P.3 mmHg LV V1 VTI: 27.2 cm Ao mean P.3 mmHg ALLIE(I,D): 2.9 cm2 Ao V2 VTI: 35.0 cm ALLIE(V,D): 2.9 cm2 sev ratio: 0.78 ALLIE indexed to BSA (cm^2/m^2): 1.4 MV E max moreno: 67.0 cm/sec PA V2 max: 120.7 cm/sec MV A max moreno: 113.4 cm/sec PA V2 mean: 92.6 cm/sec MV E/A: 0.59 PA mean P.6 mmHg Med Peak E' Moreno: 4.0 cm/sec PA pr(Accel): 41.3 mmHg E/E' med: 16.9 Lat Peak E' Moreno: 7.4 cm/sec E/E' lat: 9.1 E/e' average: 13.0 MV dec time: 0.28 sec SV(LVOT): 102.2 ml Reading Physician:12:32 PM
[2021-09-08 14:24] LABS: Cholesterol 164 mg/dL (140-199); HDL Cholesterol 32 mg/dL (40-60); LDL Cholesterol Calculated 73 mg/dL (<100); Triglycerides 294 mg/dL (35-150)
[2021-09-08 14:35] LABS: Hemoglobin A1C% w Est Avg Glu 7.8 % (4.0-6.0)
[2021-09-08] MEDS: CLOPIDOGREL 75 MG TABLET 300 MG PO (14:36)
--- NOTE | 2021-09-08 14:50 | PT.IIE ---
Current Diagnoses Cerebral infarction, unspecified (09/08/21) Surgical History (Last Reviewed 09/08/21 @ 06:33 by Truman Lal DO) History of appendectomy Hx of cataract surgery Medical History (Last Reviewed 09/08/21 @ 06:33 by Truman Lal DO) Bunion, left foot Hyperlipidemia Hypothyroidism (acquired) Screening for prostate cancer Type 2 diabetes mellitus Vitamin D deficiency Physical Therapy Inpatient Evaluation/Re-Eval M1 PT/OT-IP Prior Functional Status Start: 09/08/21 15:18 Freq: NEEDED Status: Active Protocol: Document 09/08/21 14:50 AB (Rec: 09/08/21 15:35 AB [id number]) Medical Review Prior Functional Status Medical History Reviewed Yes Communication able to make needs known; has slurred speech Mobility and Gait pt stated that he is independent with all mobilities and ambulation without AD Activities of Daily Living and IADL's IND Social History Household Members significant other Living Arrangements House Number of Floors (Floors) 3 or More Floors Number of Stairs To Enter/Railing? no steps to enter. 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 Home Environment High Toilet,Walk in Shower Home Equipment Hand Held Shower,Grab Bars In Shower Employment Status Retired Additional Social History Comment spouse will M2 PT-IP Current Condition Start: 09/08/21 15:18 Freq: NEEDED Status: Active Protocol: Document 09/08/21 14:50 AB (Rec: 09/08/21 15:35 AB [id number]) Physical Therapy Current Condition Current Condition Evaluation Date 09/08/21 Treatment Diagnosis L CVA; difficulty in walking Onset Date 09/08/21 M3 PT-IP Subjective Start: 09/08/21 15:18 Freq: NEEDED Status: Active Protocol: Document 09/08/21 14:50 AB (Rec: 09/08/21 15:35 AB [id number]) Subjective Physical Therapy Visit Type Type Initial Evaluation Visit Start Time 14:50 Visit Stop Time 15:15 Total Visit Minutes 25 Number of CUSTOMER EXPERIENCE ANALYST Visits 0 Physical Therapy Visit Comments Patient Comments agreeable to do PT Therapy Pain Assessment Pain Present Pain Present Denied Pain M4 PT-IP Mobility and Gait Start: 09/08/21 15:18 Freq: NEEDED Status: Active Protocol: Document 09/08/21 14:50 AB (Rec: 09/08/21 15:35 AB [id number]) PT-Bed Mobility Assessment Supine to Sit Supine to Sit Independent Sit to Supine Sit to Supine Independent PT-Transfer Assessment Sit to and From Stand Sit to and from Stand Independent Equipment Transfer Assistive Device None Orthotic/Prosthetic Devices or Brace: No Transfers Transfer Destination Toilet Transfer Technique ambulated Transfer Ability Level of Assist Independent Comments Mobility Comments completed bed mobility independent. ambulated in room without AD SBA. presents with antalgic gait with increase R lateral trunk lean but without LOB. educated pt on COG and balance. Tinetti Balance Assessment:balance test: Gait assessment: 12/17 total score: which relates to low fall risk . pt ambulated to the toilet without AD mod I. educated on steadiness and slowing down and pt agreed. ambulated again with slowing movement and with increase steadiness. pt went back to bed. informed pt that no PT intervention needed but will need speech therapy. pt agreed. Gait Assessment Gait Gait Assistance Required: Independent,Standby Assistance Distance (Feet) 40 Able to Maintain Weight Bearing Status Yes During Gait Assistive Devices Assistive Device None Orthotic/Prosthetic Devices or Brace: No Gait Deviations General Gait Pattern Antalgic Factors Limiting Gait Function Factors Limiting Gait Function Decreased Sensation,Poor Balance PT-Balance Assessment Sitting Balance and Reactions Static Sitting Balance Ability Normal Dynamic Sitting Balance Ability Normal Standing Balance and Reactions Static Standing Balance Ability Good Dynamic Standing Balance Ability Good Device Used without AD Functional Assessments Functional Tests Tinetti Balance and Gait Assessment bal: gait: 12/17 total: :low fall risk M5 PT-IP Objective Assessments Start: 09/08/21 15:18 Freq: NEEDED Status: Active Protocol: Document 09/08/21 14:50 AB (Rec: 09/08/21 15:35 AB [id number]) Orientation Orientation/Cognition Level of Alertness Alert Orientation Name,Age,Birthday,Month,Date, Year,Day of Week,Place, Situation Language Function Ability No Deficits Noted Safety Awareness Understands Safety Issues Memory Description No Deficits Noted Gross Range of Motion Lower Extremity ROM Assessment Within Functional Limits Strength Lower Extremity Strength Assessment Within Functional Limits Sensation Assessment Sensation Gross Sensation Right LE Impaired,Left LE Impaired Sensation Description Numbness Comments Sensation Comments B feet decrease sensation due to diabetic neuropathy Muscle Tone Muscle Tone WNL Yes M6 PT-IP Treatment Start: 09/08/21 15:18 Freq: NEEDED Status: Active Protocol: Document 09/08/21 14:50 AB (Rec: 09/08/21 15:35 AB [id number]) Physical Therapy Treatment Education Education Provided Safety M7 PT-IP Assessment and Plan Start: 09/08/21 15:18 Freq: NEEDED Status: Active Protocol: Document 09/08/21 14:50 AB (Rec: 09/08/21 15:35 AB [id number]) PT Summary Assessment and Plan Potential Rehabilitation Potential Good Status of Condition at Evaluation Stable Summary Assessment Summary PT eval completed and no further PT intervention indicated at this time. pt can be independent with mobility in room. will need speech therapy for facial weakness and slurred speech. Frequency of Treatment Frequency Of Treatment Discharge Recommendations To Nursing Amount of Assist Needed Independent Discharge Recommendations PT Discharge Recommendations Home Transportation Needs at Discharge Private Vehicle
[2021-09-08 14:59] LABS: Thyroid Stimulating Hormone 1.68 uIU/mL (0.47-4.68)
--- NOTE | 2021-09-08 15:14 | OT.IP.EVAL ---
Current Diagnoses Cerebral infarction, unspecified (09/08/21) Past Medical History (Last Reviewed 09/08/21 @ 06:33 by Truman Lal DO) Bunion, left foot Hyperlipidemia Hypothyroidism (acquired) Screening for prostate cancer Type 2 diabetes mellitus Vitamin D deficiency Surgical History (Last Reviewed 09/08/21 @ 06:33 by Truman Lal DO) History of appendectomy Hx of cataract surgery Occupational Therapy Inpatient Evaluation/Re-Eval M1 PT/OT-IP Prior Functional Status Start: 09/08/21 15:16 Freq: NEEDED Status: Active Protocol: Document 09/08/21 15:16 CGR (Rec: 09/08/21 15:21 CGR [id number]) Medical Review Prior Functional Status Medical History Reviewed Yes Communication Pt is an effective verbal communicator now with recent onset of slurred speech. Mobility and Gait IND Activities of Daily Living and IADL's IND Social History Household Members significant other Living Arrangements House Number of Floors (Floors) 3 or More Floors Number of Stairs To Enter/Railing? no steps to enter. 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 Home Environment High Toilet,Walk in Shower Home Equipment Hand Held Shower,Grab Bars In Shower Employment Status Retired M2 OT-IP Current Condition Start: 09/08/21 15:16 Freq: Status: Active Protocol: Document 09/08/21 15:16 CGR (Rec: 09/08/21 15:21 CGR [id number]) Occupational Therapy Current Condition Current Condition Evaluation Date 09/08/21 Treatment Diagnosis R facial droop Diagnosis Onset Date 09/08/21 M3 OT- IP Subjective and Pain Start: 09/08/21 15:16 Freq: Status: Active Protocol: Document 09/08/21 15:16 CGR (Rec: 09/08/21 15:21 CGR [id number]) OT- Subjective Occupational Therapy Visit Type Type Initial Evaluation Visit Start Time 14:51 Visit Stop Time 15:14 Total Visit Minutes 23 Notes coeval with p.t. OT Pain Assessment Pain When Pain Assessed At Rest Pain Present Pain Present Denied Pain M4 OT- IP ADL's Start: 09/08/21 15:16 Freq: Status: Active Protocol: Document 09/08/21 15:16 CGR (Rec: 09/08/21 15:21 CGR [id number]) OT [id number] Comments OT Self-Feeding Comments not meal time OT ADL-Grooming Comments OT Grooming Comments not performed OT ADL-Oral Care Comments Oral Care Comments not performed OT ADL-Dressing General Eval Lower Body Dressing Ability Independent Areas Needing Assistance Socks OT ADL-Toileting General Evaluation Toileting Ability Independent OT ADL-Bathing Comments OT Bathing Comments not performed M5 OT- IP IADL's Start: 09/08/21 15:16 Freq: Status: Active Protocol: Document 09/08/21 15:16 CGR (Rec: 09/08/21 15:21 R [id number]) OT-Instrumental Activities of Daily Living Deficits IADL Deficits Identified No Deficits Home Safety Awareness Awareness of Need for Assistance at Home Good Awareness Ability to Problem Solve Emergency Able to Problem Solve Situations Medication Management Medication Management No Deficits Identified Money Management Money Management No Deficits Identified Meal Preparation Meal Preparation No Deficits Identified [place] No Deficits Identified Driving Driving Comments 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 OT- IP Functional Cognition Start: 09/08/21 15:16 Freq: Status: Active Protocol: Document 09/08/21 15:16 CGR (Rec: 09/08/21 15:21 R [id number]) Cognitive Factors Limiting Selfcare Function Cognitive Ability Level of Alertness Alert Patient Orientation Name,Age,Birthday,Month,Date, Year,Day of Week,Place, Situation Attention Span Ability Capable of Focused Attention, Capable of Sustained Attention Ability to Follow Commands Able to Follow Multi-Step Commands OT- Vision and Hearing OT- Hearing Assessment OT- Hearing Assessment WFL OT- Vision Assessment Visual Acuity Glasses All The Time Visual Attentiveness WFL Occular Pursuits WFL Visual Convergence WFL Visual Shaw WFL Vision Assessment Comments Pt wears trifocals M7 OT- IP Mobility and Balance Start: 09/08/21 15:16 Freq: Status: Active Protocol: Document 09/08/21 15:16 CGR (Rec: 09/08/21 15:21 R [id number]) OT- Bed Mobility Assessment Supine to Sit Supine to Sit Assist Independent Sit to Supine Sit to Supine Assist Independent OT-Transfer Assessment Sit to and From Stand Sit to and from Stand Independent Transfers Transfer Ability Independent Technique Transfer Destination Bed Transfer Technique Stand Step Pivot Devices Transfer Assistive Devices None OT- Gait Assessment Gait Gait Assistance Required: Independent Assistive Devices Assistive Device None OT- Balance Assessment Sitting Balance and Reactions Static Sitting Balance Ability Normal Dynamic Sitting Balance Ability Normal Standing Balance and Reactions Static Standing Balance Ability Normal Dynamic Standing Balance Ability Normal M8 OT- IP Objective Assessments Start: 09/08/21 15:16 Freq: Status: Active Protocol: Document 09/08/21 15:16 CGR (Rec: 09/08/21 15:21 CGR [id number]) OT Gross Range of Motion Upper Extremity Range of Motion Assessment Within Functional Limits OT Strength Upper Extremity Strength Assessment Within Functional Limits Comments Strength Comments 5/5 OT- Coordination Assessment Upper Extremity Finger to Nose Test Within Functional Limits Finger Tapping Test Within Functional Limits OT-Muscle Tone Assessment Muscle Tone WNL Yes OT Sensation Assessment Edema Edema Absent M9 OT- IP Assessment and Plan Start: 09/08/21 15:16 Freq: Status: Active Protocol: Document 09/08/21 15:16 CGR (Rec: 09/08/21 15:21 CGR [id number]) OT Summary Assessment and Plan Potential Rehabilitation Potential Excellent Analytic Complexity at Evaluation Low Summary Progress Towards Goals Goals Met Assessment Summary Pt presents as a low complexity evalution s/p admit for R facial droop. Pt is IND for ADLs without deficit to UE or LE strength, coordination, endurance. Pt would benefit from ST. Recommend outpatient ST consult if pt not seen in hospital. Frequency of Treatment Frequency Of Treatment Discharge Discharge Recommendations OT Discharge Recommendations Home Transportation Needs at Discharge Private Vehicle
--- NOTE | 2021-09-08 16:44 | P.HP_ITS ---
History of Present Illness History of Present Illness Date Patient Seen: 09/08/21 Time Patient Seen: 12:00 Chief complaint: Slurred speech Narrative: Lico Menard is a 71-year-old male with past medical history of hypertension, hyperlipidemia, hypothyroidism, type 2 diabetes, insomnia and obesity who presents with new onset right-sided facial droop, right-sided facial numbness and dysarthria. His last known normal was at 10:30 p.m. last night when he went to sleep and he woke up this morning with his presenting symptoms. In the ED he was outside of the 4-1/2 hour window so tPA was not given. Patient states he has never had a stroke before. 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 He denies any difficulty swallowing, headache, weakness of his arms or legs or loss of sensation in his extremities. CT head noncontrast and CTA head were negative for stroke in the ED. He was loaded with aspirin and sent for MRI. Patient History Medical History Bunion, left foot Hyperlipidemia Hypothyroidism (acquired) Screening for prostate cancer Type 2 diabetes mellitus Vitamin D deficiency Surgical History History of appendectomy Hx of cataract surgery Family & Social History Family History Father Stroke Mother COPD (chronic obstructive pulmonary disease) Social History: household members significant other Prior Living Arrangements House Safety & Behavioral: Feels Safe in Current Yes Environment Been Physically Hurt or No Threatened By a Person Tobacco & Substance use: Smoking Status Never smoker alcohol intake current alcohol intake frequency a few times a week Substance Use Type marijuana Meds Home Medications and Allergies Home Medications Medication Instructions Recorded Confirmed Type aspirin 81 mg tablet,delayed 81 mg PO DAILY 06/06/19 06/04/20 History release (Adult Low Dose Aspirin) glipizide 10 mg tablet 10 mg PO BID 06/06/19 09/08/21 History metformin 1,000 mg tablet,extended 1,000 mg PO BID 06/06/19 06/04/20 History release 24hr valsartan 160 1 tab PO DAILY 06/06/19 06/04/20 History mg-hydrochlorothiazide 25 mg tablet levothyroxine 100 mcg tablet 200 mcg PO DAILY 04/16/20 06/04/20 History sildenafil 100 mg tablet 100 mg PO DAILY PRN 04/16/20 06/04/20 History trazodone 50 mg tablet 50 mg PO BEDTIME 04/16/20 09/08/21 History lovastatin 10 mg tablet See Rx Instructions .Route 05/29/21 Rx .COMPLEX #90 tabs Allergies Allergy/AdvReac Type Severity Reaction Status Date / Time losartan AdvReac Cough Verified 06/04/20 10:53 Review of Systems Review of Systems Narrative: All other systems reviewed with the patient and are negative unless otherwise stated. Exam Vital Signs (past 8 hours): - 09/08/21 09:00 09/08/21 09:00 09/08/21 09:30 Pulse Rate 59 L Respiratory Rate 20 Blood Pressure 147/71 H 167/84 H Pulse Oximetry 98 09/08/21 09:30 09/08/21 10:00 09/08/21 10:00 Pulse Rate 59 L 64 Respiratory Rate 17 19 Blood Pressure 154/75 H Pulse Oximetry 99 97 09/08/21 10:30 09/08/21 10:30 Pulse Rate 61 Respiratory Rate 20 Blood Pressure 141/76 H Pulse Oximetry 97 Oxygen Delivery Method Room Air Narrative Exam Narrative: General:? Patient is well developed and well nourished, in no distress at this time. Obese. HEENT:? Normocephalic, atraumatic, extraocular muscles intact, oral pharynx is clear and mucous membranes are moist. Neck: supple and symmetric, trachea is midline, no cervical adenopathy. Negative for JVD Chest:? Normal AP diameter and contour without kyphoscoliosis, no tachypnea, equal chest rise bilaterally. Lungs:? CTA b/l no wheezing rhonchi or rales. Cardio:?RRR no m/r/g. Abdomen: S NT ND. No CVA tenderness. Musculoskeletal:? Muscle strength and tone are equal within normal limits, no deformity. Extremities: No edema or joint effusions. No cyanosis or clubbing. Skin:? Pale,? Warm to touch,dry and intact without rashes, ulcerations or petechiae.? Neuro:? Alert and orientated x3,? sensation to touch intact in all extremities. There is right-sided facial droop which spares the forehead. Right-sided facial numbness present. No neuro deficits in extremities. Psych:? Patient has a well-kept appearance, appropriate affect, mental status attitude thought context and judgment are appropriate for age. Objective Labs Result Diagrams: 09/08/21 06:15 09/08/21 06:15 Labs: Laboratory Results - last 24 hr 09/08/21 09/08/21 09/08/21 06:15 06:15 06:15 WBC 8.0 RBC 4.52 Hgb 14.1 Hct 40.6 L MCV 89.8 MCH 31.1 MCHC 34.7 RDW 12.6 Plt Count 215 Neut % (Auto) 48.4 L Lymph % (Auto) 37.0 [place] % (Auto) 10.1 Eos % (Auto) 3.8 Baso % (Auto) 0.7 Neut # (Auto) 3900 Lymph # (Auto) 3000 [place] # (Auto) 800 Eos # (Auto) 300 Baso # (Auto) 100 PT 10.4 INR 0.9 Sodium 140 Potassium 4.2 Chloride 103 Carbon Dioxide 27 BUN 23 H Creatinine 1.16 Estimated GFR > 60 BUN/Creatinine Ratio 19.8 Glucose 224 H Hemoglobin A1c Calcium 9.5 Total Bilirubin 0.5 AST 26 ALT 24 Alkaline Phosphatase 60 Total Creatine Kinase 67 CK-MB (CK-2) TNP CK-MB (CK-2) Rel Index TNP Troponin I < 0.012 Total Protein 7.2 Albumin 4.2 Globulin 3.0 Albumin/Globulin Ratio 1.4 Triglycerides Cholesterol LDL Cholesterol, Calc HDL Cholesterol TSH U Opiates 300ng/mL cut Ur Oxycodone Screen Urine Methadone Screen Ur Barbiturates Screen U Tricyclic Antidepress Ur Phencyclidine Scrn Ur Amphetamines Screen U Methamphetamines Scrn Ur MDMA Scrn (Ecstasy) U Benzodiazepines Scrn Urine Cocaine Screen U Marijuana (THC) Screen SARS-CoV-2 (PCR) 09/08/21 09/08/21 09/08/21 06:15 06:15 07:27 WBC RBC Hgb Hct MCV MCH MCHC RDW Plt Count Neut % (Auto) Lymph % (Auto) [place] % (Auto) Eos % (Auto) Baso % (Auto) Neut # (Auto) Lymph # (Auto) [place] # (Auto) Eos # (Auto) Baso # (Auto) PT INR Sodium Potassium Chloride Carbon Dioxide BUN Creatinine Estimated GFR BUN/Creatinine Ratio Glucose Hemoglobin A1c 7.8 H Calcium Total Bilirubin AST ALT Alkaline Phosphatase Total Creatine Kinase CK-MB (CK-2) CK-MB (CK-2) Rel Index Troponin I Total Protein Albumin Globulin Albumin/Globulin Ratio Triglycerides 294 H Cholesterol 164 LDL Cholesterol, Calc 73 HDL Cholesterol 32 L TSH U Opiates 300ng/mL cut Ur Oxycodone Screen Urine Methadone Screen Ur Barbiturates Screen U Tricyclic Antidepress Ur Phencyclidine Scrn Ur Amphetamines Screen U Methamphetamines Scrn Ur MDMA Scrn (Ecstasy) U Benzodiazepines Scrn Urine Cocaine Screen U Marijuana (THC) Screen SARS-CoV-2 (PCR) Negative 09/08/21 09/08/21 11:49 12:29 WBC RBC Hgb Hct MCV MCH MCHC RDW Plt Count Neut % (Auto) Lymph % (Auto) [place] % (Auto) Eos % (Auto) Baso % (Auto) Neut # (Auto) Lymph # (Auto) [place] # (Auto) Eos # (Auto) Baso # (Auto) PT INR Sodium Potassium Chloride Carbon Dioxide BUN Creatinine Estimated GFR BUN/Creatinine Ratio Glucose Hemoglobin A1c Calcium Total Bilirubin AST ALT Alkaline Phosphatase Total Creatine Kinase CK-MB (CK-2) CK-MB (CK-2) Rel Index Troponin I Total Protein Albumin Globulin Albumin/Globulin Ratio Triglycerides Cholesterol LDL Cholesterol, Calc HDL Cholesterol TSH 1.68 U Opiates 300ng/mL cut Negative Ur Oxycodone Screen Negative Urine Methadone Screen Negative Ur Barbiturates Screen Negative U Tricyclic Antidepress Negative Ur Phencyclidine Scrn Negative Ur Amphetamines Screen Negative U Methamphetamines Scrn Negative Ur MDMA Scrn (Ecstasy) Negative U Benzodiazepines Scrn Negative Urine Cocaine Screen Negative U Marijuana (THC) Screen Negative SARS-CoV-2 (PCR) Assessment & Plan Assessment & Plan narrative: Lico Menard is a 71-year-old male with past medical history of hypertension, hyperlipidemia, hypothyroidism, type 2 diabetes, insomnia and obesity who presents with new onset right-sided facial droop, right-sided facial numbness and dysarthria. # acute left frontal lobe ischemic stroke, present on admission -patient woke up this morning at approximately 5:00 a.m. with right-sided facial droop and numbness, no other neuro deficits -CT noncontrast head and CTA head negative, no evidence of carotid artery renard nosis -MRI brain without contrast showed acute 8 mm left posterior frontal lobe ischemic stroke -aspirin loaded in ED, continue 81 mg aspirin daily indefinitely -Plavix loaded, continue 75 mg Plavix daily for 21 days -start atorvastatin 80 mg nightly, stop home lovastatin -allow 24 hours of permissive hypertension -patient passed swallow eval with nurse -obtain echocardiogram -monitor on telemetry, no prior history of atrial fibrillation # type 2 diabetes, chronic -hold home metformin and glipizide, start sliding scale -check A1c # hypertension, chronic -hold home valsartan-hydrochlorothiazide due to permissive hypertension -restart after 24 hours # hyperlipidemia, chronic -stop home lovastatin and start atorvastatin 80 mg nightly -check lipid panel # insomnia, chronic -stem continue home trazodone 50 mg nightly # hypothyroidism, chronic -continue home Synthroid 200 mcg daily -check TSH Code status is full code Proxy is Zabrina, I have reviewed home meds and used all available resources to reconcile the home meds. Time Spent With Patient Critical Care time: I spent a total of [] minutes of critical care time on this patient's care today; this time is exclusive of procedural time. Quality VTE Deep Vein Thrombosis/Pulmonary Embolism Present on Admission: No
[2021-09-08] MEDS: INSULIN LISPRO 100 UNIT/ML 3ML VIAL SUBCUT (17:00)
[2021-09-08] MEDS: ATORVASTATIN 20 MG TABLET 80 MG PO (20:39)
[2021-09-09] MEDS: ACETAMINOPHEN 325 MG TABLET 650 MG PO (05:57)
[2021-09-09] MEDS: LEVOTHYROXINE 100 MCG TABLET 200 MCG PO (05:58)
[2021-09-09 06:00] VITALS: BP 130/70; PULSE 51; RESP 14; TEMP 36.2; O2SAT 99
[2021-09-09 06:09] LABS: Add Manual Diff / Slide Review NO; Basophils Absolute Auto 100 /uL (0-100); Basophils Percent Auto 0.7 % (0-2); Eosinophils Absolute Auto 300 /uL (0-450); Eosinophils Percent Auto 3.7 % (2-4); Hematocrit 40.1 % (41-53); Hemoglobin 13.8 g/dL (13.5-17.5); Lymphocytes Absolute Auto 2900 /uL (1100-4500); Mean Corpuscular HGB Conc 34.5 % (30-36); Mean Corpuscular Volume 89.9 fL (80-100); Monocytes Absolute Auto 800 /uL (0-900); Monocytes Percent Auto 9.5 % (3-14); Neutrophils Absolute Auto 4600 /uL (1500-7000); Neutrophils Percent Auto 53.1 % (50-75); Platelet Count 204 X10^3/uL (150-400); Red Blood Cell Count 4.46 X10^6/uL (4.5-5.9); Red Cell Distribution Width 12.5 % (11.6-14.8); White Blood Cell Count 8.7 X10^3/uL (4.5-11.0)
[2021-09-09 06:17] LABS: BUN Creatinine Ratio 20.5 (6-22); Blood Urea Nitrogen 23 mg/dL (9-20); Calcium 9.2 mg/dL (8.4-10.2); Carbon Dioxide 28 mmol/L (22-32); Chloride 102 mmol/L (98-107); Estimated Glomerular Filt Rate > 60 mL/min (>60); Glucose 180 mg/dL (80-110); HEMOLYSIS < 15 (0-50); Potassium 4.4 mmol/L (3.4-5.1); Sodium 137 mmol/L (137-145)
--- NOTE | 2021-09-09 08:01 | P.DS_ITS ---
History of Present Illness History of Present Illness Date Patient Seen: 09/09/21 Time Patient Seen: 08:02 Chief complaint: Slurred speech Narrative: Lico Menard is a 71-year-old male with past medical history of hypertension, hyperlipidemia, hypothyroidism, type 2 diabetes, insomnia and obesity who presents with new onset right-sided facial droop, right-sided facial numbness and dysarthria.? His last known normal was at 10:30 p.m. last night when he went to sleep and he woke up this morning with his presenting symptoms.? In the ED he was outside of the 4-1/2 hour window so tPA was not given.? Patient states he has never had a stroke before.? 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 He denies any difficulty swallowing, headache, weakness of his arms or legs or loss of sensation in his extremities.? CT head noncontrast and CTA head were negative for stroke in the ED.? He was loaded with aspirin and sent for MRI. Discharge Providers Provider Date of admission: 09/08/21 10:22 Discharge Date: 09/09/21 Primary care physician: Boris Bundy DO Consults: 09/08/21 12:29 Consult to Discharge Planning Routine Comment: Consult to Occupational Therapy Evaluate & Treat Comment: Physician Instructions: Evaluate and treat Consult to Physical Therapy Evaluate & Treat Comment: Physician Instructions: Evaluate and Treat Consult to Speech Therapy Evaluate & Treat Comment: Physician Instructions: Evaluate and treat Discharge provider: Tony Kurtz DO Summary Hospital Course Hospital Course: Patient admitted for stroke which occurred while he was sleeping overnight on 09/08 with last known normal at 22 30. Patient awoke with right-sided facial droop and no other neuro deficits. MRI confirmed acute left frontal ischemic stroke. Patient was given aspirin and Plavix, high-intensity statin and echo performed which was essentially normal. No evidence of carotid artery stenosis on CTA neck. Telemetry did not show atrial fibrillation. Patient was discharged home to resume his home medications and diabetic medications. Exam Vital Signs (past 8 hours): - 09/09/21 06:00 Temperature 97.1 F L Pulse Rate 51 L Respiratory Rate 14 Blood Pressure 130/70 Pulse Oximetry 99 Oxygen Flow Rate 0 Oxygen Delivery Method Room Air Oxygen Flow Rate 0 Narrative Exam Narrative: General:? Patient is well developed and well nourished, in no distress at this time. Obese. HEENT:? Normocephalic, atraumatic, extraocular muscles intact, oral pharynx is clear and mucous membranes are moist. Neck: supple and symmetric, trachea is midline, no cervical adenopathy. Negative for JVD Chest:? Normal AP diameter and contour without kyphoscoliosis, no tachypnea, equ al chest rise bilaterally. Lungs:? CTA b/l no wheezing rhonchi or rales. Cardio:?RRR no m/r/g. Abdomen: S NT ND. No CVA tenderness. Musculoskeletal:? Muscle strength and tone are equal within normal limits, no deformity. Extremities: No edema or joint effusions. No cyanosis or clubbing. Skin:? Pale,? Warm to touch,dry and intact without rashes, ulcerations or petechiae.? Neuro:? Alert and orientated x3,? sensation to touch intact in all extremities. There is right-sided facial droop which spares the forehead. Right-sided facial numbness present. No neuro deficits in extremities. Psych:? Patient has a well-kept appearance, appropriate affect, mental status attitude thought context and judgment are appropriate for age. Objective Labs Result Diagrams: 09/09/21 06:00 09/09/21 06:00 Labs: Laboratory Results - last 24 hr 09/08/21 09/08/21 09/08/21 06:15 06:15 11:49 WBC RBC Hgb Hct MCV MCH MCHC RDW Plt Count Neut % (Auto) Lymph % (Auto) [place] % (Auto) Eos % (Auto) Baso % (Auto) Neut # (Auto) Lymph # (Auto) [place] # (Auto) Eos # (Auto) Baso # (Auto) Sodium Potassium Chloride Carbon Dioxide BUN Creatinine Estimated GFR BUN/Creatinine Ratio Glucose Hemoglobin A1c 7.8 H Calcium Triglycerides 294 H Cholesterol 164 LDL Cholesterol, Calc 73 HDL Cholesterol 32 L TSH U Opiates 300ng/mL cut Negative Ur Oxycodone Screen Negative Urine Methadone Screen Negative Ur Barbiturates Screen Negative U Tricyclic Antidepress Negative Ur Phencyclidine Scrn Negative Ur Amphetamines Screen Negative U Methamphetamines Scrn Negative Ur MDMA Scrn (Ecstasy) Negative U Benzodiazepines Scrn Negative Urine Cocaine Screen Negative U Marijuana (THC) Screen Negative 09/08/21 09/09/21 09/09/21 12:29 06:00 06:00 WBC 8.7 RBC 4.46 L Hgb 13.8 Hct 40.1 L MCV 89.9 MCH 31.0 MCHC 34.5 RDW 12.5 Plt Count 204 Neut % (Auto) 53.1 Lymph % (Auto) 33.0 [place] % (Auto) 9.5 Eos % (Auto) 3.7 Baso % (Auto) 0.7 Neut # (Auto) 4600 Lymph # (Auto) 2900 [place] # (Auto) 800 Eos # (Auto) 300 Baso # (Auto) 100 Sodium 137 Potassium 4.4 Chloride 102 Carbon Dioxide 28 BUN 23 H Creatinine 1.12 Estimated GFR > 60 BUN/Creatinine Ratio 20.5 Glucose 180 H Hemoglobin A1c Calcium 9.2 Triglycerides Cholesterol LDL Cholesterol, Calc HDL Cholesterol TSH 1.68 U Opiates 300ng/mL cut Ur Oxycodone Screen Urine Methadone Screen Ur Barbiturates Screen U Tricyclic Antidepress Ur Phencyclidine Scrn Ur Amphetamines Screen U Methamphetamines Scrn Ur MDMA Scrn (Ecstasy) U Benzodiazepines Scrn Urine Cocaine Screen U Marijuana (THC) Screen [facility] Medical History Bunion, left foot Hyperlipidemia Hypothyroidism (acquired) Screening for prostate cancer Type 2 diabetes mellitus Vitamin D deficiency Surgical History History of appendectomy Hx of cataract surgery Family History Father Stroke Mother COPD (chronic obstructive pulmonary disease) Social History household members: significant other Smoking Status: Never smoker alcohol intake: current Discharge Assessment & Plan Assessment and Plan Assessment: # acute left frontal lobe ischemic stroke, present on admission -patient woke up this morning at approximately 5:00 a.m. with right-sided facial droop and numbness, no other neuro deficits -CT noncontrast head and CTA head negative, no evidence of carotid artery stenosis -MRI brain without contrast showed acute 8 mm left posterior frontal lobe ischemic stroke -aspirin loaded in ED, continue 81 mg aspirin daily indefinitely -Plavix loaded, continue 75 mg Plavix daily for 21 days -start atorvastatin 80 mg nightly, stop home lovastatin -allow 24 hours of permissive hypertension -patient passed swallow eval with nurse, speech therapy saw and gave exercises to improve dysarthria -Echo showed EF 60-65% with no evidence of interatrial shunt -no evidence of atrial fibrillation on tele # type 2 diabetes, chronic -hold home metformin and glipizide, start sliding scale -A1c 7.8%, suggested patient discuss with PCP getting on GLP-1 or SGLT-2 inhibitor instead of glipizide # hypertension, chronic -hold home valsartan-hydrochlorothiazide due to permissive hypertension -Will restart once home # hyperlipidemia, chronic -stop home lovastatin and start atorvastatin 80 mg nightly -lipid panel with LDL 73, HDL 32 # insomnia, chronic -continue home trazodone 50 mg nightly # hypothyroidism, chronic -continue home Synthroid 200 mcg daily -TSH normal at 1.68 Code status is full code Proxy is Zabrian, I have reviewed home meds and used all available resources to reconcile the home meds. Discharge Plan Discharge Plan Patient Disposition: Home Provider Discharge Comment: Your unfortunately had a stroke in the left side of your brain resulting in right-sided facial droop. He will now be on aspirin indefinitely and Plavix for the next 21 days then stop it. I have stopped your lovastatin and changed it to atorvastatin 80 mg nightly. You may resume your diabetes medication and blood pressure medication as normal. I would look into getting Jardiance from her PCP or another newer agent such as Ozempic, Victoza, Byetta or Trulicity to better control your diabetes. It was a pleasure treating you and I wish you the best. Dr. Kurtz Discharge orders & Medications Prescriptions: New atorvastatin [Lipitor] 80 mg tablet 80 mg PO BEDTIME Qty: 90 0RF clopidogrel 75 mg Tablet 75 mg PO DAILY 21 Days Qty: 20 0RF Continued levothyroxine 100 mcg tablet 200 mcg PO DAILY sildenafil 100 mg tablet 100 mg PO DAILY PRN Rx Instructions: administer 30 minutes to 4 hours before activity trazodone 50 mg tablet 50 mg PO BEDTIME aspirin [Adult Low Dose Aspirin] 81 mg Tablet,Delayed Release (Dr/Ec) 81 mg PO DAILY glipizide 10 mg Tablet 10 mg PO BID metformin 1,000 mg Tablet Extended Release 24hr 1,000 mg PO BID valsartan-hydrochlorothiazide 160-25 mg Tablet 1 tab PO DAILY Discontinued lovastatin 10 mg tablet See Rx Instructions .ROUTE .COMPLEX Qty: 90 3RF Dose Instruction: TAKE 1 TABLET EVERY EVENING Rx Instructions: TAKE 1 TABLET EVERY EVENING Follow up/Referrals: Boris Bundy DO [Primary Care Provider] - Diet/Activity/Treatments Diet: Diet as Tolerated Visit Report/Discharge Packet Instructions: DI for Stroke-Ischemic Discharge Data Primary Care Provider: Boris Bundy Quality VTE Deep Vein Thrombosis/Pulmonary Embolism Present on Admission: No
[2021-09-09] MEDS: INSULIN LISPRO 100 UNIT/ML 3ML VIAL SUBCUT ×2 (08:12→12:12)
[2021-09-09] MEDS: ASPIRIN EC 81 MG TABLET PO (08:13)
[2021-09-09] MEDS: CLOPIDOGREL 75 MG TABLET PO (08:13)
--- NOTE | 2021-09-09 10:41 | ST.IPCSEOM ---
Visit Care Team Role Provider Type Boris Bundy DO Primary Care Provider Physician Specialty: Family Practice Address: [address] [place] [address], [facility] Email: Paulette Hewitt DO Emergency Provider Physician Referring Provider Specialty: Emergency Medicine Address: [address] [place] [address] Email: [email or web address] Tony Kurtz DO Admit Provider Physician Attending Provider Specialty: Medical Address: [address] [place] [address], [facility] Email: [email or web address] Current Diagnoses Cerebral infarction, unspecified (09/08/21) Past Medical History (Last Reviewed 09/08/21 @ 18:16 by Tony Kurtz DO) Bunion, left foot (Medical) Hyperlipidemia (Medical) Hypothyroidism (acquired) (Medical) Screening for prostate cancer (Medical) Type 2 diabetes mellitus (Medical) Vitamin D deficiency (Medical) Speech-Language Pathology Swallow Evaluation MANAGER LEARNING Clinical Instructor Line Start: 09/09/21 10:39 Freq: Status: Active Protocol: Document 09/09/21 10:39 MG (Rec: 09/09/21 10:40 MG [id number]) Clinical Instructor Signature Clinical Instructor Clinical Instructor Yes: Maribell Stone MA, [facility]-MANAGER LEARNING MANAGER LEARNING Clinical Swallow Evaluation Start: 09/09/21 09:44 Freq: Status: Active Protocol: Document 09/09/21 09:45 EK (Rec: 09/09/21 10:11 EK [id number]) Clinical Swallow Evaluation Session Time Visit Start Time 08:57 Visit Stop Time 09:10 Total Visit Minutes 13 Referral Referring Provider Tony Kurtz DO Reason for Referral Stroke Protocol Setting Assessment Location Acute Care Visit Type Note Type Initial evaluation Next Note Type Next Note Type Treatment Note Patient Information Identification Type Name,ID Card History Pt is a 71-year-old male who came into the hospital for new onset right-sided facial droop, right-sided facial numbness and dysarthria. Per H&P, pt denies any difficulty swallowing, headache, weakness of his arms or legs or loss of sensation in his extremities. CT head non- contrast and CTA head were negative for stroke in the ED but MRI without contrast showed acute 8 mm left posterior frontal lobe ischemic stroke. Subjective Observations Pt was upright sitting in chair upon MANAGER LEARNING and MANAGER LEARNING pharmacy graduate intern arrival. Assessment conducted and note written by MANAGER LEARNING pharmacy graduate intern Genet Brunson under MANAGER LEARNING Supervision. Reported by Patient Current Diet Regular,Thin liquids Baseline Feeding Method Independent in self-feeding Patient Questionnaire No Objective Assessment Mental Status Alert,Responsive,Cooperative Oral Integrity WFL Dentition Within normal limits Lip Function Mild impairment Observation of Lips at Rest Right sided weakness/Drooping Pucker Right sided weakness/drooping Lip Retraction Right sided weakness/Drooping Alternating Pucker/Lip Retraction Reduced range of motion Tongue Function Within normal limits Observations of Tongue at Rest Within normal limits Tongue Protrusion Within normal limits Tongue Retraction Within normal limits Tongue Lateralization Within normal limits Jaw Function Within normal limits Observations of Jaw at Rest Within normal limits Jaw Opening Within normal limits Jaw Closing Within normal limits Hard/Soft Palate Function Within normal limits Observations of Hard/Soft Palate Within normal limits Nasality Within normal limits Phonation Within normal limits Respiratory Sufficiency Within normal limits Comment Pt has slight right side facial droop, which impacted his ROM and coordination. However, pt still completed all oral mechanism tasks. Pt's speech was 100% intelligible with only slight slurring noted. Provided pt with facial exercises to target right sided weakness and improve strength. Food and Liquid Trials Position During Assessment Upright (90 degrees),In chair Liquids Trialed Thin Solids Trialed Regular Administration Type Straw,Self-feeding Oral Impairment Within functional limits Oral Phase Comments Pt sipped liquid and chewed solid in a timely and efficient manner. No oral escape was noted during trial. No residue was observed at this time. Pharyngeal Impairment Within normal limits Pharyngeal Phase Comments Upon laryngeal palpation, pt demonstrated adequate hyolaryngeal excursion and anterior hyoid movement which indicates adequate strength and coordination for swallowing. For PO trials, t initiated swallow in a timely manner and no overt signs of aspiration/penetration. This is consistent with NSG and pt report. Fatigue/Endurance Endurance WNL Comment Endurance WNL for limited trials. [place] Swallow Protocol No Findings Swallowing Function Within functional limits Severity of Swallow Impairment Within functional limits Prognosis Good Based on Cognitive status,Duration of symptoms/severity Impact on Safety and Functioning No limitations Recommendations Instrumental Assessment No Swallowing Treatment Yes Frequency 1x Follow Up on HEP Recommended Solids Regular Recommended Liquids Thin Other Recommendations Recommended pt follow up with outpatient speech therapy if there is no improvement in 4-6 weeks. Medication Recommendations As Tolerated Discharge Recommendations Home Education Patient/Caregiver Education Described results of evaluation,Patient expressed understanding of evaluation, Patient expressed agreement with goals & treatment plans, Patient expressed understanding of safety precautions,Patient expressed understanding of feeding recommendations,Patient requires further education/ training Goals Short-term Goals 1. Pt will perform exercises to improve right sided weakness and regain strength. Long-term Goals 1. Pt will continue to tolerate least restrictive diet with no oral residue.
[2021-09-09 11:49] VITALS: BP 138/80; PULSE 65; RESP 18; TEMP 36.2; O2SAT 97
--- NOTE | 2021-09-09 13:56 | CM.DANOTE ---
Initial Discharge Assessment Note: Case received, EMR reviewed and met with patient in room. PCP: Dr Boris Bundy [facility] Patient was admitted yesterday morning with cerebral infarction. He has undergone imaging and will be discharged today to previous living arrangements and outpatient followup. No other needs. Discharged home with private transport. J Discharge Planning/Care Management CM Discharge Assessment Start: 09/09/21 13:53 Freq: Status: Active Protocol: Document 09/09/21 13:53 (Rec: 09/09/21 13:54 [id number]) Discharge Planning Assessment Advance Directives? Yes Advance Directives on File No History Provided By Patient Prior Living Arrangements House Household Members significant other Type of transporation used prior to Drives own vehicle admit Independent with ADL's Yes Is patient alert and oriented? Yes Caregiver for Another No Discharge Plan Home Transportation Arrangement Home in private vehicle with [employer] Whiteboard Updated in Patient Room with Yes name and ext. # of Clinical Laboratory Scientist Review Status In Process Next Review Type Continued Stay Review
--- NOTE | 2021-09-09 14:12 | PC.NURSE ---
Discharge Note Patient A&O, VSS, RA, no complaints of pain/discomfort. Discharge packet reviewed with patient, all questions/concerns addressed. TELE/PIV discontinued. Patient able to dress self and pack all belongings. Patient taken down to and POV.
== END 2021-09-09 14:05 | disposition home or self-care (01) | DRG 66 ==
LOC: ED 08:40 → AC 10:23
PROVIDERS: Emergency Medicine; Admitting Provider Student in an Organized Health Care Education/Training Program; Emergency Provider Emergency Medicine; PCP Family Medicine; Referring Provider Emergency Medicine; Visit Provider Student in an Organized Health Care Education/Training Program
DX: I63.9 Cerebral infarction, unspecified (principal); E11.9 Type 2 diabetes mellitus without complications; I10 Essential (primary) hypertension; E78.5 Hyperlipidemia, unspecified; G47.00 Insomnia, unspecified; E03.9 Hypothyroidism, unspecified; R29.704 NIHSS score 4; R29.702 NIHSS score 2; Z79.84 Long term (current) use of oral hypoglycemic drugs; Z20.822 Contact with and (suspected) exposure to COVID-19
CPT/HCPCS: 36415; 70450; 70496; 70498; 70551; 80048; 80053; 80061; 80305; 81003; 82550; 82962; 83036; 84443; 84484; 85025; 85610; 87635; 92610; 93005; 93010; 93306; 97161; 97165; 97530; 99285; C9803; J1815; Q9967

== ENCOUNTER → 2022-04-17 11:12 | Outpatient (CLI) | payer MEDICARE, SELFPAY ==
[2021-09-08 10:37] VITALS: BMI 37.1
[2022-04-17 12:29] LABS: Hemoglobin A1C% w Est Avg Glu 7.7 % (4.0-6.0)
[2022-04-17 12:41] LABS: Alanine Aminotransferase 22 IU/L (<50); Albumin 4.6 g/dL (3.5-5.0); Albumin Globulin Ratio 1.7 (1.0-2.8); Alkaline Phosphatase 74 U/L (38-126); Amylase 56 U/L (30-110); Aspartate Aminotransferase 22 IU/L (17-59); BUN Creatinine Ratio 24.1 (6-22); Bilirubin Total 0.7 mg/dL (0.2-1.3); Blood Urea Nitrogen 27 mg/dL (9-20); Calcium 9.7 mg/dL (8.4-10.2); Carbon Dioxide 28 mmol/L (22-32); Chloride 93 mmol/L (98-107); Estimated Glomerular Filt Rate > 60 mL/min (>60); Globulin 2.7 g/dL (1.7-4.1); Glucose 148 mg/dL (80-110); HEMOLYSIS 15 (0-50); Lipase 241 U/L (23-300); Potassium 4.1 mmol/L (3.4-5.1); Sodium 136 mmol/L (137-145); Total Protein 7.3 g/dL (6.3-8.2)
[2022-04-17 12:59] LABS: Cholesterol 50 mg/dL (140-199)
[2022-04-17 13:00] LABS: HDL Cholesterol 26 mg/dL (40-60); Triglycerides 159 mg/dL (35-150)
== END ==
PROVIDERS: PCP Family Medicine; Referring Provider Family Medicine; Visit Provider Family Medicine
DX: E11.42 Type 2 diabetes mellitus with diabetic polyneuropathy (principal); E78.5 Hyperlipidemia, unspecified; Z87.19 Personal history of other diseases of the digestive system
CPT/HCPCS: 36415; 80053; 80061; 82150; 83036; 83690

== ENCOUNTER 2023-02-04 17:13 | Observation (INO) | payer MEDICARE, SELFPAY ==
[2023-02-04] VITALS (15 sets, daily range): BP systolic 122–181; BP diastolic 61–81; PULSE 45–89; RESP 12–23; TEMP 36.6; O2SAT 94–98; BMI 32.8; BMI 37.1
--- NOTE | 2023-02-04 17:37 | DI.CT.S_ITS ---
PROCEDURE: CT STROKE INDICATIONS: Positive BE-FAST, Stroke symptoms TECHNIQUE: Noncontrast 4.5 mm thick angled axial sections acquired from the foramen magnum to the vertex, with coronal reformats. For radiation dose reduction, the following was used: automated exposure control, adjustment of mA and/or kV according to patient size. COMPARISON: [facility], CT, CT STROKE, 09/08/2021, 6:21. [facility], CT, CT STROKE, 06/06/2019, 7:54. FINDINGS: Image quality: Excellent. CSF spaces: Basal cisterns are patent. No extra-axial fluid collections. The ventricles are symmetric in size and shape. Brain: No intracranial bleeds or masses. There is cerebral volume loss for age, with resultant ventricular and sulcal prominence. There are periventricular and deep white matter chronic small vessel ischemic changes. There is intracranial internal carotid artery atherosclerosis. Skull and face: Calvarium and visualized facial bones appear intact, without suspicious lesions. Sinuses: Visualized sinuses and mastoids are clear. IMPRESSION: 1. CT head without acute intracranial abnormalities or acute calvarial fractures. 2. Age-related senescent changes and sequela of chronic small vessel ischemic disease. Findings were discussed with Dr. Gatica at 1800 hrs PST on 02/04/2023. This study fulfills neurological imaging criteria for inclusion or exclusion of acute stroke therapies based on available published neurological guidelines. Dictated by: Tristian Raphael M.D. on 02/04/2023 at 18:00 Approved by: Tristian Raphael M.D. on 02/04/2023 at 18:02
--- NOTE | 2023-02-04 17:37 | DI.RAD.S_ITS ---
PROCEDURE: XR CHEST 1V INDICATIONS: Possible stroke TECHNIQUE: One view of the chest was acquired. COMPARISON: [facility], , XR CHEST 1V, 06/06/2019, 7:47. FINDINGS: Surgical changes and devices: None. Lungs and pleura: Lung volumes are slightly diminished. Otherwise, lungs appear clear. No focal consolidation. No pneumothorax or pleural effusion. Mediastinum: Mediastinal contours appear normal. Heart size is normal. Bones and chest wall: No suspicious bony lesions. Overlying soft tissues appear unremarkable. IMPRESSION: No acute cardiopulmonary abnormality is seen. Dictated by: Tristian Raphael M.D. on 02/04/2023 at 18:36 Approved by: Tristian Raphael M.D. on 02/04/2023 at 18:37
--- NOTE | 2023-02-04 17:42 | DI.CT.S_ITS ---
PROCEDURE: CT ANGIO HEAD AND NECK INDICATIONS: 5 min garbled speech 1715 TECHNIQUE: After the administration of intravenous contrast, 1 mm thick sections acquired from the aortic arch through the [place]. 3-dimensional kmcmpsv-cqoxqszge-gwspywxtom (MIP) and/or volume rendering reformats were acquired of the central intracranial vasculature and neck separately. For radiation dose reduction, the following was used: automated exposure control, adjustment of mA and/or kV according to patient size. COMPARISON: [facility], CT, CT ANGIO HEAD AND NECK, 09/08/2021, 6:21. FINDINGS: Image quality: Diagnostic. BRAIN: CSF spaces: Ventricles are normal in size and shape. Basal cisterns are patent. No extra-axial fluid collections. Brain: No significant abnormality of the brain can be seen. Skull and face: Calvarium and facial bones appear intact, without suspicious lesions. Orbits appear normal. Sinuses: Sinuses and mastoids are clear. HEAD CT ANGIOGRAPHY: Anterior circulation: Intracranial internal carotid arteries are normal in size and flow. The flow within the paired anterior cerebral arteries is normal and symmetric. The flow within the middle cerebral arteries is normal and symmetric. The anterior communicating artery is seen. No aneurysms are seen. Posterior circulation: Visualized portions of the vertebral arteries demonstrate normal caliber, and join to form a normal appearing basilar artery. Flow within the posterior cerebral arteries is normal and symmetric. No aneurysms are seen. NECK CT ANGIOGRAPHY: Carotid system: The great vessels demonstrate a conventional anatomy as they arise from the aortic arch. The origins of the common carotid arteries appear patent. The common carotid arteries demonstrate normal caliber and courses. The bifurcation regions are both widely patent. The internal carotid arteries demonstrate normal calibers and courses. Posterior circulation: The origins of the vertebral arteries both appear widely patent. The more superior extracranial portions of both vertebral arteries also demonstrate normal courses and calibers. They join to form a normal appearing basilar artery. Soft tissues: Visualized neck soft tissues demonstrate no suspicious abnormalities. Bones: No suspicious bony lesions. Visualized cervical spine appears normally aligned. IMPRESSION: 1. No large vessel occlusion. 2. CTA head and CTA neck demonstrate no significant stenosis. No aneurysm or dissection. Any quantitative measurements of stenosis were performed using NASCET criteria. Dictated by: Hoang Onofre M.D. on 02/04/2023 at 17:15 Approved by: Hoang Onofre M.D. on 02/04/2023 at 17:18
[2023-02-04 18:11] LABS: Prothrombin Time 11.3 SECONDS (9.4-12.5)
[2023-02-04 18:12] LABS: Add Manual Diff / Slide Review NO; Basophils Absolute Auto 0 /uL (0-100); Basophils Percent Auto 0.4 % (0-2); Eosinophils Absolute Auto 200 /uL (0-450); Hematocrit 40.6 % (41-53); Hemoglobin 13.7 g/dL (13.5-17.5); Lymphocytes Absolute Auto 3300 /uL (1100-4500); Lymphocytes Percent Auto 26.8 % (25-40); Mean Corpuscular HGB Conc 33.8 % (30-36); Mean Corpuscular Hemoglobin 30.9 PG (26-34); Mean Corpuscular Volume 91.3 fL (80-100); Monocytes Absolute Auto 1200 /uL (0-900); Neutrophils Absolute Auto 7500 /uL (1500-7000); Neutrophils Percent Auto 60.8 % (50-75); Platelet Count 219 X10^3/uL (150-400); Red Blood Cell Count 4.45 X10^6/uL (4.5-5.9); Red Cell Distribution Width 13.1 % (11.6-14.8); White Blood Cell Count 12.4 X10^3/uL (4.5-11.0)
--- NOTE | 2023-02-04 18:19 | ED.NEUROSD ---
HPI - Neuro Symptoms/Deficit General Chief Complaint: Neuro Symptoms/Deficit Stated Complaint: Garbled up words, hx of CVA 2021 Time Seen by Provider: 02/04/23 17:46 Source: patient and family Mode of arrival: Ambulatory History of Present Illness HPI Narrative: Is a 72 year male history of type 2 diabetes hypertension hyperlipidemia previous CVA presents today with slurring of speech. He interacted with his around 415 he laid on the couch and then they spoke again around 445 and she reports that he had garbled speech. She was unable to determine what he was saying. He previously had a CVA a year ago where he had some right-sided facial droop slurring of speech at that time. Today he had no facial droop no numbness tingling or weakness. Symptoms lasted less than 10 minutes and maybe around 5 minutes. He is a NIH stroke scale 0 currently. And has no complaints On Anticoagulants: No (81mg aspirin) Related Data Home Medications Medication Instructions Recorded Confirmed aspirin 81 mg tablet,delayed 81 mg PO DAILY 06/06/19 02/04/23 release (Adult Low Dose Aspirin) glipizide 10 mg tablet 10 mg PO BID 06/06/19 02/04/23 metformin 1,000 mg tablet,extended 1,000 mg PO BID 06/06/19 02/04/23 release 24hr valsartan 160 1 tab PO DAILY 06/06/19 02/04/23 mg-hydrochlorothiazide 25 mg tablet levothyroxine 100 mcg tablet 75 mcg PO DAILY 04/16/20 02/04/23 sildenafil 100 mg tablet 100 mg PO DAILY PRN 04/16/20 05/29/22 trazodone 50 mg tablet 50 mg PO BEDTIME 04/16/20 02/04/23 Previous Rx's Medication Instructions Recorded atorvastatin 40 mg tablet See Rx Instructions .Route 07/21/22 .COMPLEX #90 tabs Allergies Allergy/AdvReac Type Severity Reaction Status Date / Time losartan AdvReac Cough Verified 05/29/22 10:24 Review of Systems Hematologic/Lymphatic On Anticoagulants: No (81mg aspirin) Patient History Medical History (Updated 02/04/23 @ 21:32 by Jayson Dutta MD) CKD (chronic kidney disease) stage 2, GFR 60-89 ml/min History of stroke HTN (hypertension) Thoracic region somatic dysfunction Chronic thoracic back pain Type 2 diabetes mellitus with peripheral neuropathy Bunion, left foot Vitamin D deficiency Screening for prostate cancer Hypothyroidism (acquired) Hyperlipidemia Surgical History History of appendectomy Hx of cataract surgery Family History Father Stroke Mother COPD (chronic obstructive pulmonary disease) Social History household members: significant other Smoking Status: Never smoker alcohol intake: current Smoking Status: Never smoker alcohol intake frequency: a few times a week Alcohol type: beer Substance Use Type: does not use Exam Initial Vital Signs Initial Vital Signs: Vital Signs Temperature 97.8 F 02/04/23 17:15 Pulse Rate 45 L 02/04/23 17:15 Respiratory Rate 16 02/04/23 17:15 Blood Pressure 181/81 H 02/04/23 17:15 Pulse Oximetry 98 02/04/23 17:15 Oxygen Delivery Method Room Air 02/04/23 17:15 GENERAL: Alert pleasant well-appearing 72-year-old male HEENT: Head atraumatic,EOMI, pupils reactive, face symmetric, moist mucous membranes CARDIOVASCULAR: Regular rate and rhythm without murmurs, rubs or gallops. RESPIRATORY: Breath sounds equal bilaterally, no wheezes rales or rhonchi. ABDOMEN: Soft, nontender. Normoactive bowel sounds all 4 quadrants. No guarding or rebound. EXTREMITIES: Normal range of motion, no clubbing or edema. Neurovascularly intact NEUROLOGICAL: Alert and oriented x4.Normal gait and speech. Cranial nerves II through XII grossly intact. Good [id number], good [id number], strength equal bilaterally, no dysarthria or aphasia, sensation in tact to soft touch bilaterally, no visual changes, no facial droop SKIN: Warm, dry, no laceration, no petechiae, no rashes or lesions. Scores NIH Stroke Scale Level of Conciousness: Alert, keenly responsive Ask month/age: Answers both questions correctly. Open/close eyes, close hand: Performs both tasks correctly Best gaze horizontal: Normal Visual scott: No visual loss Facial palsy: Normal symetrical movement Left arm drift: No drift for full 10 sec Right arm drift: No drift for full 10 sec Left leg drift: No drift for full 5 sec Right leg drift: No drift for full 5 sec Limb ataxia: Absent Sensory on face/arms/legs: Normal, no sensory loss Best language: No aphasia, normal Dysarthria: Normal Extinction or inattention: No abnormality Total NIH Stroke scale score: 0 Course Orders Ordered: ED Orders 02/04/23 18:35 Urinalysis and Microscopic Stat Urine Drug Screen, Rapid Stat Acetaminophen (Acetaminophen 325 Mg Tablet) 650 mg PO Q4H PRN PRN Reason: Fever/Mild Pain (1-3) Atorvastatin Calcium (Atorvastatin 20 Mg Tablet) 80 mg PO BEDTIME [facility] Last Admin: 02/04/23 22:59 Dose: 80 mg Documented By: Enoxaparin Sodium (Enoxaparin 40 Mg/0.4 Ml Syringe) 40 mg SUBCUT DAILY [facility] Glipizide (Glipizide 5 Mg Tablet) 10 mg PO BIDWM [facility] Last Admin: 02/04/23 23:23 Dose: 10 mg Documented By: Hydrochlorothiazide (Hydrochlorothiazide 25 Mg Tablet) 25 mg PO DAILY [facility] Dextrose (D10w) 100 mls @ 1,200 mls/hr IV PRN PRN PRN Reason: Hypoglycemia Insulin Human Lispro (Insulin Lispro 100 Unit/Ml 3ml Vial) 0 unit SUBCUT ACHS [facility]; Protocol Last Admin: 02/04/23 22:58 Dose: Not Given Documented By: Levothyroxine Sodium (Levothyroxine 100 Mcg Tablet) 200 mcg PO QACBREAK [facility] Metformin HCl (Metformin Xr 500 Mg Tablet) 1,000 mg PO BID [facility] Last Admin: 02/04/23 22:59 Dose: 1,000 mg Documented By: Naloxone HCl (Naloxone 0.4 Mg/Ml Vial) 0.2 mg IV Q2MIN PRN PRN Reason: Opiate Reversal Non-Formulary Medication (Empagliflozin [Jardiance]) 25 mg PO DAILY [facility] Ondansetron HCl (Ondansetron 4 Mg/2 Ml Inj) 4 mg IV NOW PRN PRN Reason: Nausea And Vomiting Ondansetron HCl (Ondansetron 4 Mg Odt) 4 mg SL NOW PRN PRN Reason: Nausea And Vomiting Trazodone HCl (Trazodone 50 Mg Tablet) 50 mg PO BEDTIME [facility] Last Admin: 02/04/23 22:59 Dose: 50 mg Documented By: LEODAN Valsartan (Valsartan 80 Mg Tablet) 160 mg PO DAILY [facility] Discontinued Medications Clopidogrel Bisulfate (Clopidogrel 75 Mg Tablet) 300 mg PO NOW ONE Stop: 02/04/23 20:40 Last Admin: 02/04/23 20:45 Dose: 300 mg Documented By: ANA Glipizide (Glipizide 5 Mg Tablet) 10 mg PO BIDWM [facility] Non-Formulary Medication (Valsartan-Hydrochlorothiazide) 1 tab PO DAILY [facility] Vital Signs Vital signs: Vital Signs - 8 hr 02/04/23 19:00 02/04/23 19:01 02/04/23 19:01 Pulse Rate 63 61 Respiratory Rate 14 12 Blood Pressure 129/61 Pulse Oximetry 97 97 02/04/23 19:30 02/04/23 19:31 02/04/23 19:31 Pulse Rate 66 68 Respiratory Rate 14 14 Blood Pressure 137/71 Pulse Oximetry 95 97 02/04/23 20:16 02/04/23 20:18 02/04/23 20:30 Pulse Rate Respiratory Rate Blood Pressure 131/65 122/74 Pulse Oximetry 94 02/04/23 20:30 Pulse Rate 58 L Respiratory Rate 18 Blood Pressure Pulse Oximetry 96 MDM - Neuro Symptoms/Deficit Lab Data 02/04/23 17:29 02/04/23 17:29 Labs: Lab Results 02/04/23 02/04/23 Range/Units 17:29 18:35 WBC 12.4 H (4.5-11.0) X10^3/uL RBC 4.45 L (4.5-5.9) X10^6/uL Hgb 13.7 (13.5-17.5) g/dL Hct 40.6 L (41-53) % MCV 91.3 (80-100) fL MCH 30.9 (26-34) PG MCHC 33.8 (30-36) % RDW 13.1 (11.6-14.8) % Plt Count 219 (150-400) X10^3/uL Neut % (Auto) 60.8 (50-75) % Lymph % (Auto) 26.8 (25-40) % [place] % (Auto) 10.0 (3-14) % Eos % (Auto) 2.0 (2-4) % Baso % (Auto) 0.4 (0-2) % Neut # (Auto) 7500 H (4067-4866) /uL Lymph # (Auto) 3300 (5938-5205) /uL [place] # (Auto) 1200 H (0-900) /uL Eos # (Auto) 200 (0-450) /uL Baso # (Auto) 0 (0-100) /uL PT 11.3 (9.4-12.5) SECONDS INR 1.0 (0.9-1.3) APTT 30 (25.1-36.5) SECONDS Sodium 136 L (137-145) mmol/L Potassium 4.8 (3.4-5.1) mmol/L Chloride 100 (98-107) mmol/L Carbon Dioxide 27 (22-32) mmol/L BUN 22 H (9-20) mg/dL Creatinine 1.08 (0.66-1.25) mg/dL Estimated GFR > 60 (>60) mL/min BUN/Creatinine Ratio 20.4 (6-22) Glucose 94 (80-110) mg/dL Calcium 10.1 (8.4-10.2) mg/dL Magnesium 1.6 (1.6-2.3) mg/dL Total Bilirubin 0.5 (0.2-1.3) mg/dL AST 24 (17-59) IU/L ALT 17 (<50) IU/L Alkaline Phosphatase 70 (38-126) U/L Total Creatine Kinase 50 L (55-170) U/L Troponin I < 0.012 (0.01-0.034) ng/mL Total Protein 7.3 (6.3-8.2) g/dL Albumin 4.4 (3.5-5.0) g/dL Globulin 2.9 (1.7-4.1) g/dL Albumin/Globulin Ratio 1.5 (1.0-2.8) Urine Color Yellow Urine Appearance Clear Urine pH 7.0 (4.5-8.0) Ur Specific [place] 1.010 (1.000-1.035) Urine Protein Negative (Negative) Urine Glucose (UA) Negative (Negative) g/dL Urine Ketones Negative (NEGATIVE) Urine Occult Blood 2+ H (Negative) Urine Nitrate Negative (Negative) Urine Bilirubin Negative (NEGATIVE) Urine Urobilinogen 0.2 (0.2) E.U./dL Ur Leukocyte Esterase Negative (NEGATIVE) Urine RBC 10-30/hpf H (0-5/HPF) Urine WBC 0-1/hpf (0-5/HPF) Ur Squamous Epith Cells 0-1 /hpf (0-5/HPF) Urine Bacteria None seen (None) Ur Culture Indicated? Cult not indicated U Opiates 300ng/mL cut Negative (Negative) Ur Oxycodone Screen Negative (Negative) Urine Methadone Screen Negative (Negative) Ur Barbiturates Screen Negative (Negative) U Tricyclic Antidepress Negative (Negative) Ur Phencyclidine Scrn Negative (Negative) Ur Amphetamines Screen Negative (Negative) U Methamphetamines Scrn Negative (Negative) Ur MDMA Scrn (Ecstasy) Negative (Negative) U Benzodiazepines Scrn Negative (Negative) Urine Cocaine Screen Negative (Negative) U Marijuana (THC) Screen Negative (Negative) Point of Care Testing Glucose POC [address] scan - head: Radiologist's Impression: PROCEDURE: CT STROKE INDICATIONS: Positive BE-FAST, Stroke symptoms TECHNIQUE: Noncontrast 4.5 mm thick angled axial sections acquired from the foramen magnum to the vertex, with coronal reformats. For radiation dose reduction, the following was used: automated exposure control, adjustment of mA and/or kV according to patient size. COMPARISON: [facility], CT, CT STROKE, 09/08/2021, 6:21. [facility], CT, CT STROKE, 06/06/2019, 7:54. FINDINGS: Image quality: Excellent. CSF spaces: Basal cisterns are patent. No extra-axial fluid collections. The ventricles are symmetric in size and shape. Brain: No intracranial bleeds or masses. There is cerebral volume loss for age, with resultant ventricular and sulcal prominence. There are periventricular and deep white matter chronic small vessel ischemic changes. There is intracranial internal carotid artery atherosclerosis. Skull and face: Calvarium and visualized facial bones appear intact, without suspicious lesions. Sinuses: Visualized sinuses and mastoids are clear. IMPRESSION: 1. CT head without acute intracranial abnormalities or acute calvarial fractures. 2. Age-related senescent changes and sequela of chronic small vessel ischemic disease. Findings were discussed with Dr. Gatica at [facility] [place] [facility] on 02/04/2023. This study fulfills neurological imaging criteria for inclusion or exclusion of acute stroke therapies based on available published neurological guidelines. Dictated by: Tristian Raphael M.D. on 02/04/2023 at 18:00 CTA - brain/neck: Radiologist's Impression: PROCEDURE: CT ANGIO HEAD AND NECK INDICATIONS: 5 min garbled speech 1715 TECHNIQUE: After the administration of intravenous contrast, 1 mm thick sections acquired from the aortic arch through the [place]. 3-dimensional qsqrxcw-qmtkjhrte-pdoonmmlxa (MIP) and/or volume rendering reformats were acquired of the central intracranial vasculature and neck separately. For radiation dose reduction, the following was used: automated exposure control, adjustment of mA and/or kV according to patient size. COMPARISON: [facility], CT, CT ANGIO HEAD AND NECK, 09/08/2021, 6:21. FINDINGS: Image quality: Diagnostic. BRAIN: CSF spaces: Ventricles are normal in size and shape. Basal cisterns are patent. No extra-axial fluid collections. Brain: No significant abnormality of the brain can be seen. Skull and face: Calvarium and facial bones appear intact, without suspicious lesions. Orbits appear normal. Sinuses: Sinuses and mastoids are clear. HEAD CT ANGIOGRAPHY: Anterior circulation: Intracranial internal carotid arteries are normal in size and flow. The flow within the paired anterior cerebral arteries is normal and symmetric. The flow within the middle cerebral arteries is normal and symmetric. The anterior communicating artery is seen. No aneurysms are seen. Posterior circulation: Visualized portions of the vertebral arteries demonstrate normal caliber, and join to form a normal appearing basilar artery. Flow within the posterior cerebral arteries is normal and symmetric. No aneurysms are seen. NECK CT ANGIOGRAPHY: Carotid system: The great vessels demonstrate a conventional anatomy as they arise from the aortic arch. The origins of the common carotid arteries appear patent. The common carotid arteries demonstrate normal caliber and courses. The bifurcation regions are both widely patent. The internal carotid arteries demonstrate normal calibers and courses. Posterior circulation: The origins of the vertebral arteries both appear widely patent. The more superior extracranial portions of both vertebral arteries also demonstrate normal courses and calibers. They join to form a normal appearing basilar artery. Soft tissues: Visualized neck soft tissues demonstrate no suspicious abnormalities. Bones: No suspicious bony lesions. Visualized cervical spine appears normally aligned. IMPRESSION: 1. No large vessel occlusion. 2. CTA head and CTA neck demonstrate no significant stenosis. No aneurysm or dissection. Any quantitative measurements of stenosis were performed using NASCET criteria. Dictated by: Hoang Onofre M.D. on 02/04/2023 at 17:15 Approved by: Hoang Onofre M.D. on 02/04/2023 at 17:18 Chest x-ray: Radiologist's Impression: PROCEDURE: XR CHEST 1V INDICATIONS: Possible stroke TECHNIQUE: One view of the chest was acquired. COMPARISON: [facility], , XR CHEST 1V, 06/06/2019, 7:47. FINDINGS: Surgical changes and devices: None. Lungs and pleura: Lung volumes are slightly diminished. Otherwise, lungs appear clear. No focal consolidation. No pneumothorax or pleural effusion. Mediastinum: Mediastinal contours appear normal. Heart size is normal. Bones and chest wall: No suspicious bony lesions. Overlying soft tissues appear unremarkable. IMPRESSION: No acute cardiopulmonary abnormality is seen. Dictated by: Tristian Raphael M.D. on 02/04/2023 at 18:36 ECG Data Interpretation: EKG 1. Sinus rhythm PVC noted artifact noted no ST changes To prior EKG 2. Sinus rhythm frequent PVCs no ST changes MDM Narrative Medical decision making narrative: Patient is 72-year-old male history of CVA with positive MRI 1 year ago hypertension hyperlipidemia diabetes presenting today with dysphagia. Symptoms completely resolved. Blood pressure is within normal limits head CT CT angio were negative blood work has been revealed an overall reassuring. Talked with Dr. Dutta recommended touching base with Neurology Dr [place], neurology updated patient's symptoms test results recommends admitting for arbs repeating echo loading with Plavix 75 mg Plavix daily stop the aspirin check cholesterol. Dr. Dutta accepts patient. Discharge Plan Departure Patient Disposition: Admitted as Observation Clinical Impression: Brain TIA Admit Date/Time: 02/04/23 20:43 Admit Provider: Jayson De Leon
[2023-02-04 18:23] LABS: Alanine Aminotransferase 17 IU/L (<50); Albumin 4.4 g/dL (3.5-5.0); Albumin Globulin Ratio 1.5 (1.0-2.8); Alkaline Phosphatase 70 U/L (38-126); Aspartate Aminotransferase 24 IU/L (17-59); BUN Creatinine Ratio 20.4 (6-22); Bilirubin Total 0.5 mg/dL (0.2-1.3); Blood Urea Nitrogen 22 mg/dL (9-20); Calcium 10.1 mg/dL (8.4-10.2); Carbon Dioxide 27 mmol/L (22-32); Chloride 100 mmol/L (98-107); Creatine Kinase 50 U/L (55-170); Estimated Glomerular Filt Rate > 60 mL/min (>60); Globulin 2.9 g/dL (1.7-4.1); Glucose 94 mg/dL (80-110); HEMOLYSIS < 15 (0-50); Magnesium 1.6 mg/dL (1.6-2.3); Potassium 4.8 mmol/L (3.4-5.1); Sodium 136 mmol/L (137-145); Total Protein 7.3 g/dL (6.3-8.2)
[2023-02-04 18:28] LABS: PTT Partial Thromboplastin Tim 30 SECONDS (25.1-36.5)
[2023-02-04 18:35] LABS: Troponin I < 0.012 ng/mL (0.01-0.034)
[2023-02-04 19:04] LABS: Appearance Urine UA CLEAR; Bilirubin Urine UA NEGATIVE (NEGATIVE); Color Urine UA YELLOW; Glucose Urine UA NEGATIVE (Negative); Ketones Urine UA NEGATIVE (NEGATIVE); Leukocyte Esterase Urine UA NEGATIVE (NEGATIVE); Nitrite Urine UA NEGATIVE (Negative); Occult Blood Urine UA 2+ (Negative); Protein Urine UA NEGATIVE (Negative); Urobilinogen Urine UA 0.2 E.U./dL (0.2)
[2023-02-04 19:15] LABS: UR Morphine/Opiate cutoff 300 Negative (Negative); Ur Creatinine Normal (Normal); Ur Specific Gravity Normal (Normal); Urine Amphetamines Negative (Negative); Urine Barbiturates Negative (Negative); Urine Benzodiazepines Negative (Negative); Urine Cocaine Negative (Negative); Urine MDMA Negative (Negative); Urine Methadone Negative (Negative); Urine Methamphetamines Negative (Negative); Urine Oxycodone Negative (Negative); Urine Phencyclidine Negative (Negative); Urine Tetrahydrocannabinol Negative (Negative); Urine Tricyclic Antidepressant Negative (Negative); Urine pH Normal (Normal)
[2023-02-04 19:20] LABS: Bacteria Urine None Seen; Culture Indicated Urine Cult Not Indicated; RBC Urine 10-30/HPF (0-5/HPF); Squamous Epithelial Cell Urine 0-1 /HPF (0-5/HPF); WBC Urine 0-1/HPF (0-5/HPF)
[2023-02-04] MEDS: CLOPIDOGREL 75 MG TABLET 300 MG PO (20:45)
--- NOTE | 2023-02-04 20:55 | PM.HP.1 ---
History of Present Illness History of Present Illness Date Patient Seen: 02/04/23 Chief complaint: Garbled up words, hx of CVA 2021 Narrative: 72 y/o with PMH of HTN, HLD and DM, small lacunar Lt MCA CVA in 09/2021w/o lingering deficicits, presented to ED after he experienced abrupt onset of slurring that lasted 5- 10 minutes. On arrival to ED NIH score 0. Hypertensive in ED for the first few hours. [facility] Medical History (Updated 02/04/23 @ 21:32 by Jayson Dutta MD) CKD (chronic kidney disease) stage 2, GFR 60-89 ml/min History of stroke HTN (hypertension) Thoracic region somatic dysfunction Chronic thoracic back pain Type 2 diabetes mellitus with peripheral neuropathy Bunion, left foot Vitamin D deficiency Screening for prostate cancer Hypothyroidism (acquired) Hyperlipidemia Surgical History History of appendectomy Hx of cataract surgery Family History Father Stroke Mother COPD (chronic obstructive pulmonary disease) Social History household members: significant other Smoking Status: Never smoker alcohol intake: current Meds Home Medications and Allergies Home Medications Medication Instructions Recorded Confirmed Type aspirin 81 mg tablet,delayed 81 mg PO DAILY 06/06/19 05/29/22 History release (Adult Low Dose Aspirin) glipizide 10 mg tablet 10 mg PO BID 06/06/19 05/29/22 History metformin 1,000 mg tablet,extended 1,000 mg PO BID 06/06/19 05/29/22 History release 24hr valsartan 160 1 tab PO DAILY 06/06/19 05/29/22 History mg-hydrochlorothiazide 25 mg tablet levothyroxine 100 mcg tablet 200 mcg PO DAILY 04/16/20 05/29/22 History sildenafil 100 mg tablet 100 mg PO DAILY PRN 04/16/20 05/29/22 History trazodone 50 mg tablet 50 mg PO BEDTIME 04/16/20 05/29/22 History empagliflozin 25 mg tablet 25 mg PO DAILY #90 tabs 09/19/21 05/29/22 Rx (Jardiance) atorvastatin 40 mg tablet See Rx Instructions .Route 07/21/22 Rx .COMPLEX #90 tabs Allergies Allergy/AdvReac Type Severity Reaction Status Date / Time losartan AdvReac Cough Verified 05/29/22 10:24 Review of Systems Constitutional Comments: w/o fever or chills, generalized weakness, weight loss Eyes Comments: w/o recent vision changes ENT Comments: w/o swallowing difficulties, hearing loss, dental problems Cardiovascular Comments: w/o palpitations or chest pain Respiratory Comments: w/o shortness of breath Gastrointestinal Comments: w/o complaints Genitourinary Comments: w/o dysuria Neurologic Comments: resolved slurring, w/o focal weakness or numbness Psychiatric Comments: mood is normal Endocrine Comments: w/o polyuria or polydipsia Hematologic/Lymphatic Comments: w/o dark or bloody stool, bloody urine, easy bruising, recent bleed Exam Vital Signs (past 8 hours): - 02/04/23 17:15 02/04/23 17:22 02/04/23 17:23 Temperature 97.8 F Pulse Rate 45 L 85 64 Respiratory Rate 16 Blood Pressure 181/81 H Pulse Oximetry 98 96 97 Oxygen Delivery Method Room Air 02/04/23 17:23 02/04/23 17:30 02/04/23 17:44 Temperature Pulse Rate 89 Respiratory Rate Blood Pressure 181/81 H 142/67 H Pulse Oximetry 97 Oxygen Delivery Method 02/04/23 17:44 02/04/23 18:00 02/04/23 18:00 Temperature Pulse Rate 77 67 Respiratory Rate 18 23 Blood Pressure 148/75 H Pulse Oximetry 98 96 Oxygen Delivery Method 02/04/23 18:30 02/04/23 18:31 02/04/23 18:31 Temperature Pulse Rate 63 63 Respiratory Rate 16 16 Blood Pressure 134/62 Pulse Oximetry 97 97 Oxygen Delivery Method 02/04/23 19:00 02/04/23 19:01 02/04/23 19:01 Temperature Pulse Rate 63 61 Respiratory Rate 14 12 Blood Pressure 129/61 Pulse Oximetry 97 97 Oxygen Delivery Method 02/04/23 19:30 02/04/23 19:31 02/04/23 19:31 Temperature Pulse Rate 66 68 Respiratory Rate 14 14 Blood Pressure 137/71 Pulse Oximetry 95 97 Oxygen Delivery Method Oxygen Delivery Method Room Air Const Other: sitting in bed in no distress, at bedside [facility] Other: normocephalic Eyes Other: glasses, eomi, reactive pupils Neck Other: no thyromegaly or JVD Resp Other: normal respiratory effort Cardio Other: RRR, DOTTY at LSB (TR?) GI Other: abdomen not distended Skin Other: w/o rashes Neuro Other: NIH 0 Extrem Other: w/o deformities or swelling Psych Other: appropriae mood and affect, lucid Objective Labs 02/04/23 17:29 02/04/23 17:29 Labs: Laboratory Results - last 24 hr 02/04/23 02/04/23 17:29 18:35 WBC 12.4 H RBC 4.45 L Hgb 13.7 Hct 40.6 L MCV 91.3 MCH 30.9 MCHC 33.8 RDW 13.1 Plt Count 219 Neut % (Auto) 60.8 Lymph % (Auto) 26.8 [place] % (Auto) 10.0 Eos % (Auto) 2.0 Baso % (Auto) 0.4 Neut # (Auto) 7500 H Lymph # (Auto) 3300 [place] # (Auto) 1200 H Eos # (Auto) 200 Baso # (Auto) 0 PT 11.3 INR 1.0 APTT 30 Sodium 136 L Potassium 4.8 Chloride 100 Carbon Dioxide 27 BUN 22 H Creatinine 1.08 Estimated GFR > 60 BUN/Creatinine Ratio 20.4 Glucose 94 Calcium 10.1 Magnesium 1.6 Total Bilirubin 0.5 AST 24 ALT 17 Alkaline Phosphatase 70 Total Creatine Kinase 50 L Troponin I < 0.012 Total Protein 7.3 Albumin 4.4 Globulin 2.9 Albumin/Globulin Ratio 1.5 Urine Color Yellow Urine Appearance Clear Urine pH 7.0 Ur Specific [place] 1.010 Urine Protein Negative Urine Glucose (UA) Negative Urine Ketones Negative Urine Occult Blood 2+ H Urine Nitrate Negative Urine Bilirubin Negative Urine Urobilinogen 0.2 Ur Leukocyte Esterase Negative Urine RBC 10-30/hpf H Urine WBC 0-1/hpf Ur Squamous Epith Cells 0-1 /hpf Urine Bacteria None seen Ur Culture Indicated? Cult not indicated U Opiates 300ng/mL cut Negative Ur Oxycodone Screen Negative Urine Methadone Screen Negative Ur Barbiturates Screen Negative U Tricyclic Antidepress Negative Ur Phencyclidine Scrn Negative Ur Amphetamines Screen Negative U Methamphetamines Scrn Negative Ur MDMA Scrn (Ecstasy) Negative U Benzodiazepines Scrn Negative Urine Cocaine Screen Negative U Marijuana (THC) Screen Negative Assessment & Plan Assessment and plan (1) TIA (transient ischemic attack): Status: Acute Plan: Placed in observation, on telemetry - BP monitoring - uncontrolled - A1C, TSH, lipid panel, echocardiogram in am - Loaded with Plavix in ED as recommended by neurology ada accommodation consultant - switched from ASA to Plavix - increased Lipitor to 80 mg hs (2) History of stroke: Status: Acute Plan: In 09/2021, small, Lt MCA teritory, no remnant deficits (3) HTN (hypertension): Status: Acute Plan: Uncontrolled for a better part of his ED stay On Valsartan 160 / HCTZ 25 1 T daily at home - continue with it - will tolerate SBP of 160-170 (4) Hyperlipidemia: Qualifiers: Hyperlipidemia type: unspecified Qualified Code(s): E78.5 - Hyperlipidemia, unspecified Status: Acute Plan: Lipid panel pending - Lipitor increased from 40 to 80 mg hs (5) Type 2 diabetes mellitus with peripheral neuropathy: Status: Acute Plan: - D.diet, SS Lispro, Metformin, Glipizide, Jardiance - A1C pending (6) Chronic thoracic back pain: Qualifiers: Back pain laterality: bilateral Qualified Code(s): M54.6 - Pain in thoracic spine; G89.29 - Other chronic pain Status: Acute Plan: Tylenol (7) Hypothyroidism (acquired): Status: Acute Plan: Levothyroxine 200 mcg daily - TSH pending (8) CKD (chronic kidney disease) stage 2, GFR 60-89 ml/min: Status: Acute Plan: Seems to be at baseline
[2023-02-04] MEDS: TRAZODONE 50 MG TABLET PO (22:59)
[2023-02-04] MEDS: METFORMIN XR 500 MG TABLET 1000 MG PO (22:59)
[2023-02-04] MEDS: ATORVASTATIN 20 MG TABLET 80 MG PO (22:59)
[2023-02-04] MEDS: glipiZIDE 5 MG TABLET 10 MG PO (23:23)
[2023-02-05 00:26] VITALS: BP 112/49; PULSE 42; RESP 16; TEMP 36.3; O2SAT 99
[2023-02-05 04:26] VITALS: BP 120/76; PULSE 60; RESP 16; TEMP 36.4; O2SAT 98
[2023-02-05] MEDS: LEVOTHYROXINE 100 MCG TABLET 200 MCG PO (06:30)
[2023-02-05 08:00] VITALS: BP 122/76; PULSE 62; RESP 17; TEMP 36.3; O2SAT 98
--- NOTE | 2023-02-05 08:04 | DI.MRI.S_ITS ---
PROCEDURE: MR HEAD/BRAIN WO CON INDICATIONS: tia vs cva? TECHNIQUE: Non-contrast axial T1 spin echo, axial T2 fast spin echo, sagittal and axial FLAIR, coronal T2 fast spin echo, axial gradient echo, axial diffusion and ADC through the brain. COMPARISON: [facility], CT, CT STROKE, 02/04/2023, 17:49. [facility], MR, MR HEAD/BRAIN WO CON, 09/08/2021, 12:49. FINDINGS: Image quality: Excellent. CSF spaces: Ventricles appear symmetric in size and shape. Basal cisterns are patent. No extra-axial fluid collections. Brain: No intracranial bleeds or mass effects. There is cerebral volume loss for age. There are periventricular and deep white matter chronic small vessel ischemic changes. Brainstem appears normal. Diffusion-weighted images show no acute ischemic insults. No chronic ischemic insults. Normal intravascular flow voids are present. Small remote infarct involving the left periventricular white matter correlating with location of previously described infarction. Skull and face: Calvarial bone marrow is normal in signal. Orbits are normal. Sinuses: Sinuses and mastoids are clear. IMPRESSION: MRI brain without acute intracranial abnormalities. Specifically, no evidence for acute cerebral infarction. Redemonstration of age related senescent changes and sequela of chronic small vessel ischemic disease. Dictated by: Tristian Raphael M.D. on 02/05/2023 at 9:10 Approved by: Tristian Raphael M.D. on 02/05/2023 at 9:16
[2023-02-05] MEDS: hydroCHLOROthiazide 25 MG TABLET PO (08:47)
[2023-02-05] MEDS: METFORMIN XR 500 MG TABLET 1000 MG PO (08:47)
[2023-02-05] MEDS: VALSARTAN 80 MG TABLET 160 MG PO (08:47)
[2023-02-05] MEDS: glipiZIDE 5 MG TABLET 10 MG PO (08:48)
[2023-02-05 10:01] LABS: Add Manual Diff / Slide Review NO; Basophils Absolute Auto 0 /uL (0-100); Basophils Percent Auto 0.4 % (0-2); Eosinophils Absolute Auto 200 /uL (0-450); Eosinophils Percent Auto 2.2 % (2-4); Hematocrit 41.5 % (41-53); Lymphocytes Absolute Auto 1100 /uL (1100-4500); Lymphocytes Percent Auto 11.7 % (25-40); Mean Corpuscular HGB Conc 33.7 % (30-36); Mean Corpuscular Hemoglobin 31.3 PG (26-34); Mean Corpuscular Volume 92.9 fL (80-100); Monocytes Absolute Auto 900 /uL (0-900); Monocytes Percent Auto 9.7 % (3-14); Neutrophils Absolute Auto 7400 /uL (1500-7000); Platelet Count 203 X10^3/uL (150-400); Red Blood Cell Count 4.47 X10^6/uL (4.5-5.9); Red Cell Distribution Width 13.1 % (11.6-14.8); White Blood Cell Count 9.7 X10^3/uL (4.5-11.0)
[2023-02-05 10:02] LABS: Hemoglobin A1C% w Est Avg Glu 6.6 % (4.0-6.0)
[2023-02-05 10:09] LABS: Blood Urea Nitrogen 22 mg/dL (9-20); Calcium 9.9 mg/dL (8.4-10.2); Carbon Dioxide 30 mmol/L (22-32); Chloride 102 mmol/L (98-107); Cholesterol 81 mg/dL (140-199); Estimated Glomerular Filt Rate > 60 mL/min (>60); Glucose 150 mg/dL (80-110); HDL Cholesterol 30 mg/dL (40-60); HEMOLYSIS < 15 (0-50); LDL Cholesterol Calculated 18 mg/dL (<100); Potassium 4.9 mmol/L (3.4-5.1); Sodium 138 mmol/L (137-145); Triglycerides 167 mg/dL (35-150)
[2023-02-05 10:40] LABS: TSH w/ Reflex to FT4 2.13 uIU/mL (0.47-4.68)
--- NOTE | 2023-02-05 11:54 | CM.DANOTE ---
Initial DCP Assessment Note Pt is a 72 yo male, resident of [place], now POD#1 from right hip surgery. PCP: Karel Shoemaker Payer: [facility] Reviewed chart, pt discussed in multidisciplinary rounds this morning. Therapy has cleared pt for return home w/family to assist and pt has planned for home, DC order from Ortho has already been initiated this morning. No barriers identified at this time to patient's safe discharge home w/family to assist; close outpatient f/u recommended. ELZA Bach Discharge Planning/Care Management Advanced directive, confirm from FAMILY Start: 02/04/23 22:42 Freq: Q24H Status: Discharge Protocol: Document 02/04/23 22:42 MS (Rec: 02/05/23 01:22 MS [id number]) Advance Directive, confirm on record Time 01:22 Person contacted patient Copy received No CM Discharge Assessment Start: 02/05/23 11:52 Freq: Status: Active Protocol: Document 02/05/23 11:52 (Rec: 02/05/23 11:54 [id number]) Discharge Planning Assessment Assigned Contract Runner ELZA Pelletier DPOA/Assigned Designee Name Olga Perkins, spouse Contact Information [phone] Advance Directives? Yes Advance Directives on File No History Provided By Patient,Medical Record Prior Living Arrangements House Household Members significant other Type of transporation used prior to Drives own vehicle admit Independent with ADL's Yes Is patient alert and oriented? Yes Patient/Family Preference OP PT Therapy Barriers to Discharge No Discharge Plan Home Transportation Arrangement Family Referrals Initiated None needed
--- NOTE | 2023-02-05 12:08 | CM.DANOTE ---
Initial DCP Assessment Note Pt is a 72yo male, resident [facility], arrives w/slurred speech. Discharged after imaging/work up Neg for stroke. PCP: Johnnie Bundy Payer: [employer] Reviewed chart, pt discussed in multidisciplinary rounds this morning. Patient has returned to functional and cognitive baseline. Imaging negative for stroke, patient discharged home w/family. No barriers identified at this time to patient's safe discharge home w/family to assist; close outpatient f/u recommended. ELZA Bach Discharge Planning/Care Management CM Discharge Assessment Start: 02/05/23 11:52 Freq: Status: Active Protocol: Document 02/05/23 11:52 SHWETA (Rec: 02/05/23 11:54 [id number]) Discharge Planning Assessment Assigned Cover Stitch Machine Operator Jenny W, MSW DPWILLIAMS/Assigned Designee Name Olga Perkins, spouse Contact Information [phone] Advance Directives? Yes Advance Directives on File No History Provided By Patient,Medical Record Prior Living Arrangements House Household Members significant other Type of transporation used prior to Drives own vehicle admit Independent with ADL's Yes Is patient alert and oriented? Yes Patient/Family Preference OP PT Therapy Barriers to Discharge No Discharge Plan Home Transportation Arrangement Family Referrals Initiated None needed Document 02/05/23 12:05 SHWETA (Rec: 02/05/23 12:08 [id number]) Discharge Planning Assessment Assigned Cover Stitch Machine Operator Jenny W, MSW DPWILLIAMS/Assigned Designee Name Zabrina Morrow, spouse Contact Information [phone] Advance Directives? Yes Advance Directives on File No History Provided By Patient,Medical Record Prior Living Arrangements House Household Members significant other Type of transporation used prior to Drives own vehicle admit Independent with ADL's Yes Is patient alert and oriented? Yes Barriers to Discharge No Discharge Plan Home Transportation Arrangement Family Referrals Initiated None needed
--- NOTE | 2023-02-07 19:51 | PM.DS.1 ---
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 On arrival to ED NIH score 0. Hypertensive in ED for the first few hours. Discharge Providers Provider Date of admission: 02/04/23 20:43 Discharge Date: 02/05/23 Primary care physician: Johnnie Bundy, DO Discharge provider: Jani Escalante MD Summary Hospital Course Discharge Diagnosis: 1. Probable TIA 2. History of Stroke 3. Diabetes 4. Hypertension Hospital Course: Mr. Menard was admitted after a transient episode of dysarthria. Once in the hospital he had normal neurologic function. MRI showed no evidence of stroke. He had no evidence of atrial fibrillation. He is suspected to have had a TIA. He is already on aspirin, and he is prescribed plavix for dual antiplatelets for at least three weeks. He should follow up with his PCP to determine what agent he should be on after this period. Exam Vital Signs (past 8 hours): Oxygen Delivery Method Room Air Oxygen Flow Rate 0 Narrative Exam Narrative: GEN: no acute distress CV: regular rate and rhythm PULM: clear bilaterally ABD: soft, nontender Objective Labs 02/05/23 09:28 02/05/23 09:28 PFS Medical History (Updated 02/04/23 @ 21:32 by Jayson Dutta MD) CKD (chronic kidney disease) stage 2, GFR 60-89 ml/min History of stroke HTN (hypertension) Thoracic region somatic dysfunction Chronic thoracic back pain Type 2 diabetes mellitus with peripheral neuropathy Bunion, left foot Vitamin D deficiency Screening for prostate cancer Hypothyroidism (acquired) Hyperlipidemia Surgical History History of appendectomy Hx of cataract surgery Family History Father Stroke Mother COPD (chronic obstructive pulmonary disease) Social History household members: significant other Smoking Status: Never smoker alcohol intake: current Discharge Plan Discharge Plan Patient Disposition: Home Provider Discharge Comment: Mr. Menard was admitted due to speech difficulty. He improved quickly. MRI showed no stroke. He likely had a TIA. He is prescribed plavix to take daily to reduce the risk of stroke. He should take this for at least three weeks. He should continue aspirin as well. He should follow up with his PCP. Discharge orders & Medications Prescriptions: New clopidogrel 75 mg tablet 75 mg PO DAILY Qty: 30 0RF Continued atorvastatin 40 mg tablet See Rx Instructions .ROUTE .COMPLEX Qty: 90 3RF Dose Instruction: TAKE 1 TABLET AT BEDTIME Rx Instructions: TAKE 1 TABLET AT BEDTIME levothyroxine 100 mcg tablet 75 mcg PO DAILY sildenafil 100 mg tablet 100 mg PO DAILY PRN Rx Instructions: administer 30 minutes to 4 hours before activity trazodone 50 mg tablet 50 mg PO BEDTIME aspirin [Adult Low Dose Aspirin] 81 mg Tablet,Delayed Release (Dr/Ec) 81 mg PO DAILY glipizide 10 mg Tablet 10 mg PO BID metformin 1,000 mg Tablet Extended Release 24hr 1,000 mg PO BID valsartan-hydrochlorothiazide 160-25 mg Tablet 1 tab PO DAILY Follow up/Referrals: Johnnie Bundy, [Primary Care Provider] - Diet/Activity/Treatments Diet: Carb-consistent/Diabetic Visit Report/Discharge Packet Stand Alone Forms: Patient Portal/API, Stroke Signs & Symptoms Discharge Data Primary Care Provider: Johnnie Bundy Attending Provider: Jayson De Leon Admit Date/Time: 02/04/23 20:43
== END 2023-02-05 10:30 | disposition home or self-care (01) ==
LOC: ED 17:45 → AC 20:44
PROVIDERS: Emergency Medicine; Admitting Provider Internal Medicine; Emergency Provider Emergency Medicine; PCP Family Medicine; Referring Provider Emergency Medicine; Visit Provider Internal Medicine
DX: E11.42 Type 2 diabetes mellitus with diabetic polyneuropathy (principal); E11.22 Type 2 diabetes mellitus with diabetic chronic kidney disease; N18.2 Chronic kidney disease, stage 2 (mild); I12.9 Hypertensive chronic kidney disease with stage 1 through stage 4 chronic kidney disease, or unspecified chronic kidney disease; R47.81 Slurred speech; R29.700 NIHSS score 0; Z86.73 Personal history of transient ischemic attack (TIA), and cerebral infarction without residual deficits; Z79.84 Long term (current) use of oral hypoglycemic drugs
CPT/HCPCS: 36415; 70450; 70496; 70498; 70551; 71045; 80048; 80053; 80061; 80305; 81001; 82550; 82962; 83036; 83735; 84443; 84484; 85025; 85610; 85730; 93005; 99285; G0378

== ENCOUNTER → 2023-03-10 09:46 | Outpatient (CLI) | payer MEDICARE, SELFPAY ==
[2023-02-04 21:24] VITALS: BMI 32.8
== END ==
LOC: CAR 09:47
PROVIDERS: PCP Family Medicine; Referring Provider Family Medicine; Visit Provider Family Medicine
DX: Z86.73 Personal history of transient ischemic attack (TIA), and cerebral infarction without residual deficits (principal)
CPT/HCPCS: 93246

== ENCOUNTER → 2023-06-08 06:40 | Outpatient (CLI) | payer MEDICARE, SELFPAY ==
[2023-02-04 21:24] VITALS: BMI 32.8
--- NOTE | 2023-06-08 06:41 | DI.US.S_ITS ---
PROCEDURE: US SCROTUM INDICATIONS: RIGHT SCROTAL LUMP TECHNIQUE: Real-time scanning was performed of the scrotum and testicles, with image documentation. Color and pulse Doppler interrogation was performed of both testicles. COMPARISON: None. FINDINGS: Right: Testicle is normal in size at 4.1 x 1.8 x 3.0 cm, and homogenous in echotexture. Epididymal cyst measuring 1.6 centimeters. Epididymis is normal in overall size and morphology. No hydrocele or varicoceles. Overlying scrotal skin is normal in thickness. Left: Testicle is normal in size at 3.3 x 2.0 x 3.3 cm, and homogeneous in echotexture. Small simple cyst measuring 3 millimeters within the testicle. Epididymal head cyst measuring 7 millimeters. Epididymis is normal in overall size and morphology. No hydrocele or varicoceles. Overlying scrotal skin is normal in thickness. Doppler: Color and pulse Doppler demonstrate normal and symmetric arterial flow in both testicles. IMPRESSION: 1. There is a right epididymal simple cyst measuring 1.6 centimeters, this may be source of scrotal lump. 2. Otherwise, the testes and epididymides are normal in appearance. Dictated by: Rl Deal M.D. on 06/08/2023 at 10:15 Approved by: Rl Deal M.D. on 06/08/2023 at 10:17
== END ==
PROVIDERS: PCP Family Medicine; Referring Provider Internal Medicine; Visit Provider Internal Medicine
DX: N50.3 Cyst of epididymis (principal); N50.89 Other specified disorders of the male genital organs
CPT/HCPCS: 76870; 93975

== ENCOUNTER → 2023-07-29 09:06 | Outpatient (CLI) | payer MEDICARE, SELFPAY ==
[2023-07-13 11:55] VITALS: BMI 32.8
== END ==
PROVIDERS: PCP Family Medicine; Referring Provider Physician Assistant; Visit Provider Surgery
DX: T86.821 Skin graft (allograft) (autograft) failure (principal); E11.628 Type 2 diabetes mellitus with other skin complications; I10 Essential (primary) hypertension
CPT/HCPCS: 99203; 99213

== ENCOUNTER → 2023-08-05 10:13 | Outpatient (CLI) | payer MEDICARE, SELFPAY ==
[2023-07-13 11:55] VITALS: BMI 32.8
== END ==
LOC: WC 10:14
PROVIDERS: PCP Family Medicine; Referring Provider Physician Assistant; Visit Provider Surgery
DX: T86.821 Skin graft (allograft) (autograft) failure (principal); E11.628 Type 2 diabetes mellitus with other skin complications
CPT/HCPCS: 99213

== ENCOUNTER → 2023-08-13 08:29 | Outpatient (CLI) | payer MEDICARE, SELFPAY ==
[2023-07-13 11:55] VITALS: BMI 32.8
== END ==
LOC: WC 08:31
PROVIDERS: PCP Family Medicine; Referring Provider Physician Assistant; Visit Provider Surgery
DX: T86.828 Other complications of skin graft (allograft) (autograft) (principal); S61.216A Laceration without foreign body of right little finger without damage to nail, initial encounter; L98.8 Other specified disorders of the skin and subcutaneous tissue; E11.628 Type 2 diabetes mellitus with other skin complications; I10 Essential (primary) hypertension
CPT/HCPCS: 99213

== ENCOUNTER → 2023-09-18 10:09 | Outpatient (CLI) | payer MEDICARE, SELFPAY ==
[2023-07-13 11:55] VITALS: BMI 32.8
[2023-09-18 10:53] LABS: Hemoglobin A1C% w Est Avg Glu 6.1 % (4.0-6.0)
== END ==
LOC: LAB 10:10
PROVIDERS: PCP Family Medicine; Referring Provider Family Medicine; Visit Provider Family Medicine
DX: E11.42 Type 2 diabetes mellitus with diabetic polyneuropathy (principal)
CPT/HCPCS: 36415; 83036

== ENCOUNTER → 2024-01-22 10:01 | Outpatient (CLI) | payer MEDICARE, SELFPAY ==
[2023-07-13 11:55] VITALS: BMI 32.8
[2024-01-22 10:36] LABS: Add Manual Diff / Slide Review NO; Basophils Absolute Auto 0 /uL (0-100); Basophils Percent Auto 0.5 % (0-2); Eosinophils Absolute Auto 200 /uL (0-450); Eosinophils Percent Auto 2.6 % (2-4); Hematocrit 42.6 % (41-53); Hemoglobin 14.3 g/dL (13.5-17.5); Lymphocytes Absolute Auto 1900 /uL (1100-4500); Lymphocytes Percent Auto 28.9 % (25-40); Mean Corpuscular HGB Conc 33.7 % (30-36); Mean Corpuscular Hemoglobin 31.1 PG (26-34); Mean Corpuscular Volume 92.4 fL (80-100); Monocytes Absolute Auto 700 /uL (0-900); Monocytes Percent Auto 9.9 % (3-14); Neutrophils Absolute Auto 3900 /uL (1500-7000); Neutrophils Percent Auto 58.1 % (50-75); Platelet Count 201 X10^3/uL (150-400); Red Blood Cell Count 4.61 X10^6/uL (4.5-5.9); Red Cell Distribution Width 13.2 % (11.6-14.8); White Blood Cell Count 6.7 X10^3/uL (4.5-11.0)
[2024-01-22 10:53] LABS: Alanine Aminotransferase 21 IU/L (<50); Albumin 4.1 g/dL (3.5-5.0); Albumin Globulin Ratio 1.6 (1.0-2.8); Alkaline Phosphatase 62 U/L (38-126); Aspartate Aminotransferase 23 IU/L (17-59); BUN Creatinine Ratio 17.5 (6-22); Bilirubin Total 0.7 mg/dL (0.2-1.3); Blood Urea Nitrogen 21 mg/dL (9-20); Calcium 9.6 mg/dL (8.4-10.2); Carbon Dioxide 30 mmol/L (22-32); Chloride 101 mmol/L (98-107); Estimated Glomerular Filt Rate > 60 mL/min (>60); Globulin 2.6 g/dL (1.7-4.1); Glucose 149 mg/dL (80-110); HEMOLYSIS < 15 (0-50); Potassium 4.5 mmol/L (3.4-5.1); Sodium 135 mmol/L (137-145); Total Protein 6.7 g/dL (6.3-8.2)
[2024-01-22 10:55] LABS: Creatinine Urine Random 244.51 mg/dL
[2024-01-22 10:59] LABS: Microalbumin Urine Random 1.3 mg/dL (0-1.6)
[2024-01-22 11:24] LABS: TSH w/ Reflex to FT4 0.61 uIU/mL (0.47-4.68)
== END ==
LOC: LAB 10:02
PROVIDERS: PCP Family Medicine; Referring Provider Family Medicine; Visit Provider Family Medicine
DX: E11.42 Type 2 diabetes mellitus with diabetic polyneuropathy (principal); N18.2 Chronic kidney disease, stage 2 (mild); E03.9 Hypothyroidism, unspecified; I12.9 Hypertensive chronic kidney disease with stage 1 through stage 4 chronic kidney disease, or unspecified chronic kidney disease
CPT/HCPCS: 36415; 80053; 82043; 82570; 83036; 84443; 85025

== ENCOUNTER → 2024-03-09 17:13 | Outpatient (CLI) | payer MEDICARE, SELFPAY ==
[2023-07-13 11:55] VITALS: BMI 32.8
--- NOTE | 2024-03-09 | DI.RAD.S_ITS ---
PROCEDURE: XR CALCANEOUS LT MIN 2V INDICATIONS: left bunion TECHNIQUE: Two views of the calcaneus were acquired. COMPARISON: None. FINDINGS: Bones: No fractures or dislocations. There is pes planus with weight-bearing. Well-defined plantar calcaneal enthesophyte is seen. No suspicious bony lesions. Soft tissues: No suspicious calcifications. Achilles tendon appears normal. IMPRESSION: Pes planus with weight bearing. Well-defined plantar calcaneal enthesophyte. No acute calcaneal fracture or dislocation. Dictated by: Rafa Recinos M.D. on 03/10/2024 at 12:15 Approved by: Rafa Recinos M.D. on 03/10/2024 at 12:15
--- NOTE | 2024-03-09 17:16 | DI.RAD.S_ITS ---
PROCEDURE: XR FOOT LT MIN 3V INDICATIONS: FOOT PAIN TECHNIQUE: 3 views of the foot were acquired. COMPARISON: [facility], , XR FOOT LT MIN 3V, 06/04/2020, 11:50. FINDINGS: Bones: No fractures or dislocations. Moderate hallux valgus is seen. Osteoarthritic changes are noted throughout left foot more notably involving 1st TMT joint, 1st MTP joint and 1st interphalangeal joint. Subtle erosion involving dorsal and medial aspect of 1st metatarsal head is seen. No suspicious bony lesions. Soft tissues: Marked soft tissue swelling over dorsal and medial aspect of 1st metatarsal head further increased in size compared to 2020 study. No tibiotalar joint effusion. Achilles tendon appears normal. IMPRESSION: Suggestion of large medial bunion with adjacent erosive changes in 1st metatarsal head. Worsening left foot osteoarthritis. No acute fracture or dislocation. Dictated by: Rafa Recinos M.D. on 03/10/2024 at 12:14 Approved by: Rafa Recinos M.D. on 03/10/2024 at 12:15
== END ==
LOC: RAD 17:14
PROVIDERS: PCP Family Medicine; Referring Provider Podiatrist Foot & Ankle Surgery; Visit Provider Podiatrist Foot & Ankle Surgery
DX: M20.12 Hallux valgus (acquired), left foot (principal); M21.612 Bunion of left foot; M19.072 Primary osteoarthritis, left ankle and foot; M77.32 Calcaneal spur, left foot; M21.42 Flat foot [pes planus] (acquired), left foot
CPT/HCPCS: 73630; 73650

== ENCOUNTER → 2024-03-10 17:09 | Outpatient (CLI) | payer MEDICARE, SELFPAY ==
[2023-07-13 11:55] VITALS: BMI 32.8
--- NOTE | 2024-03-10 17:10 | DI.MRI.S_ITS ---
PROCEDURE: MR FOOT LT WO/W CON INDICATIONS: SOFT TISSUE MASS - R/O TUMOR TECHNIQUE: Noncontrast coronal T1 spin echo and STIR, sagittal T1 spin echo with fat saturation and STIR, axial T1 spin echo and T2 fast spin echo with fat saturation. After the administration of contrast, axial/sagittal/coronal T1 spin echo with fat saturation through the left foot. COMPARISON: [facility], CR, XR CALCANEOUS LT MIN 2V, 03/09/2024, 17:17. [facility], CR, XR FOOT LT MIN 3V, 03/09/2024, 17:17. [facility], CR, XR FOOT LT MIN 3V, 06/04/2020, 11:50. FINDINGS: Image quality: Excellent. Enhancement: Medial to the 1st MTP joint, there is a T1 and T2 intermediate signal amorphous 3.0 x 3.4 x 3.2 cm lesion (07/28; 09/26; 08/24) with adjacent synovial enhancement extending from the 1st MTP joint. These findings correspond to the soft tissue tophi present on the 03/09/2024 left foot x-ray. There is no discrete internal enhancement within this lesion (11/28; 12/30). Bone: Juxta-articular erosions are present at the medial lateral aspect of the 1st metatarsal head as well as the medial aspect of the 1st proximal phalanx (07/27-). Similar erosions are present at the bases of the 2nd-4th metatarsals (07/26). There is mild corresponding marrow edema at the 1st metatarsal head (08/27). There is marrow replacement with corresponding edema and enhancement of the 4th digit distal phalangeal tuft (08/02; 09/03; 02/03). There is no acute fracture or dislocation. Joint: Moderate hallux valgus is present with lateralization of the hallux sesamoids. There is a bipartite medial hallux sesamoid (08/04). There is no significant joint effusion in the field of view. Muscle: There is moderate-severe diffuse muscle atrophy and fatty replacement of the visualized plantar foot musculature. Tendon: The visualized flexor and extensor tendons are within normal limits. Ligament: The visualized Lisfranc ligament complex is preserved. There is thickening and intermediate signal of the 1st metatarsosesamoid ligaments with nonvisualization of their metatarsal attachments (09/25). Other: There is T1 and T2 hypointense signal around the lateral aspect of the 5th MTP joint (5/32; 7/27; 8/31). IMPRESSION: 1. 1st MTP joint and juxta-articular soft tissue tophus, likely representing sequelae of gout. Please correlate with serum urate or percutaneous sampling/crystal analysis. 2. Chronic tearing versus gouty involvement of the 1st metatarsosesamoid ligaments. 3. Additional foci of gout at the 2nd-4th MTP joints. 4. Fourth digit distal phalangeal tuft findings, which may represent underlying osteomyelitis. Please correlate with physical exam for evidence of a sinus tract or soft tissue defect. 5. Likely chronic adventitial bursitis along the lateral aspect of the 5th MTP joint. 6. Chronic denervation changes of the plantar foot musculature. Dictated by: Andrei Ham M.D. on 03/14/2024 at 14:22 Approved by: Andrei Ham M.D. on 03/14/2024 at 14:39
== END ==
LOC: MRI 17:09
PROVIDERS: PCP Family Medicine; Referring Provider Podiatrist Foot & Ankle Surgery; Visit Provider Podiatrist Foot & Ankle Surgery
DX: M20.12 Hallux valgus (acquired), left foot (principal); D21.9 Benign neoplasm of connective and other soft tissue, unspecified; M21.612 Bunion of left foot; M1A.9XX1 Chronic gout, unspecified, with tophus (tophi)
CPT/HCPCS: 73720; A9579

== ENCOUNTER → 2024-03-21 10:43 | Outpatient (CLI) | payer MEDICARE, SELFPAY ==
[2023-07-13 11:55] VITALS: BMI 32.8
[2024-03-21 12:57] LABS: Uric Acid 8.5 mg/dL (3.5-8.5)
== END ==
PROVIDERS: PCP Family Medicine; Referring Provider Podiatrist Foot & Ankle Surgery; Visit Provider Podiatrist Foot & Ankle Surgery
DX: M10.9 Gout, unspecified (principal)
CPT/HCPCS: 36415; 84550

== ENCOUNTER → 2024-04-06 10:57 | Outpatient (CLI) | payer MEDICARE, SELFPAY ==
[2023-07-13 11:55] VITALS: BMI 32.8
[2024-04-06 12:05] LABS: Add Manual Diff / Slide Review NO; Basophils Absolute Auto 0 /uL (0-100); Basophils Percent Auto 0.3 % (0-2); Eosinophils Absolute Auto 100 /uL (0-450); Hematocrit 41.4 % (41-53); Hemoglobin 13.9 g/dL (13.5-17.5); Lymphocytes Absolute Auto 1400 /uL (1100-4500); Lymphocytes Percent Auto 27.1 % (25-40); Mean Corpuscular HGB Conc 33.6 % (30-36); Mean Corpuscular Hemoglobin 31.2 PG (26-34); Mean Corpuscular Volume 92.8 fL (80-100); Monocytes Absolute Auto 700 /uL (0-900); Monocytes Percent Auto 12.8 % (3-14); Neutrophils Absolute Auto 3000 /uL (1500-7000); Neutrophils Percent Auto 57.8 % (50-75); Platelet Count 217 X10^3/uL (150-400); Red Blood Cell Count 4.47 X10^6/uL (4.5-5.9); Red Cell Distribution Width 12.5 % (11.6-14.8); White Blood Cell Count 5.2 X10^3/uL (4.5-11.0)
[2024-04-06 12:08] LABS: Hemoglobin A1C% w Est Avg Glu 5.8 % (4.0-6.0)
[2024-04-06 12:17] LABS: INR 1.1 (0.9-1.3); Prothrombin Time 12.4 SECONDS (9.4-12.5)
[2024-04-06 12:18] LABS: Alanine Aminotransferase 19 IU/L (<50); Albumin 4.6 g/dL (3.5-5.0); Albumin Globulin Ratio 1.8 (1.0-2.8); Alkaline Phosphatase 77 U/L (38-126); Aspartate Aminotransferase 26 IU/L (17-59); BUN Creatinine Ratio 23.6 (6-22); Bilirubin Total 0.4 mg/dL (0.2-1.3); Blood Urea Nitrogen 29 mg/dL (9-20); Carbon Dioxide 27 mmol/L (22-32); Chloride 100 mmol/L (98-107); Estimated Glomerular Filt Rate > 60 mL/min (>60); Globulin 2.5 g/dL (1.7-4.1); Glucose 129 mg/dL (80-110); HEMOLYSIS < 15 (0-50); Potassium 4.6 mmol/L (3.4-5.1); Sodium 137 mmol/L (137-145); Total Protein 7.1 g/dL (6.3-8.2)
== END ==
PROVIDERS: PCP Family Medicine; Referring Provider Podiatrist Foot & Ankle Surgery; Visit Provider Podiatrist Foot & Ankle Surgery
DX: Z01.818 Encounter for other preprocedural examination (principal)
CPT/HCPCS: 36415; 80053; 83036; 85025; 85610

== ENCOUNTER → 2024-04-07 14:54 | Outpatient (CLI) | payer MEDICARE, SELFPAY ==
[2023-07-13 11:55] VITALS: BMI 32.8
--- NOTE | 2024-04-07 14:58 | EKG_ITS ---
[facility] [address] [place] [address] Test Date: 2024-04-07 Pat Name: Lico Menard Department: [facility] Room: Gender: Male Hand Weaver: JOSE L : 1950 Requested By: Order Number: [id number] Reading MD: García Rousseau Measurements Intervals [place] Rate: 61 P: 51 LA: 218 QRS: -43 QRSD: 106 T: 31 QT: 412 QTc: 414 Interpretive Statements Poor data quality, interpretation may be adversely affected Sinus rhythm with 1st degree AV block with premature atrial complexes Left axis deviation Incomplete right bundle branch block Septal infarct , age undetermined Electronically Signed On 04-12-2024 23:42:22 PST by García Rousseau
== END ==
PROVIDERS: PCP Family Medicine; Referring Provider Podiatrist Foot & Ankle Surgery; Visit Provider Podiatrist Foot & Ankle Surgery
DX: Z01.812 Encounter for preprocedural laboratory examination (principal)
CPT/HCPCS: 93005

== ENCOUNTER → 2024-12-18 09:56 | Outpatient (CLI) | payer MEDICARE, SELFPAY ==
[2023-07-13 11:55] VITALS: BMI 32.8
[2024-12-18 12:11] LABS: Hematocrit 40.3 % (41-53); Hemoglobin 13.6 g/dL (13.5-17.5); Hemoglobin A1C% w Est Avg Glu 5.9 % (4.0-6.0); Mean Corpuscular HGB Conc 33.8 % (30-36); Mean Corpuscular Hemoglobin 32.1 PG (26-34); Mean Corpuscular Volume 95.0 fL (80-100); Platelet Count 170 X10^3/uL (150-400)
[2024-12-18 12:21] LABS: Alanine Aminotransferase 15 IU/L (<50); Albumin 4.2 g/dL (3.5-5.0); Albumin Globulin Ratio 1.7 (1.0-2.8); Alkaline Phosphatase 56 U/L (38-126); Blood Urea Nitrogen 18 mg/dL (9-20); Calcium 9.6 mg/dL (8.4-10.2); Carbon Dioxide 27 mmol/L (22-32); Chloride 101 mmol/L (98-107); Cholesterol 70 mg/dL (140-199); Estimated Glomerular Filt Rate > 60 mL/min (>60); Globulin 2.5 g/dL (1.7-4.1); Glucose 107 mg/dL (70-99); HDL Cholesterol 38 mg/dL (40-60); HEMOLYSIS < 15 (0-50); Potassium 4.4 mmol/L (3.4-5.1); Sodium 136 mmol/L (137-145); Total Protein 6.7 g/dL (6.3-8.2); Triglycerides 118 mg/dL (35-150); Uric Acid 3.7 mg/dL (3.5-8.5)
[2024-12-18 12:51] LABS: Prostate Specific Antigen 1.92 ng/mL (0.10-4.00)
[2024-12-18 12:53] LABS: TSH w/ Reflex to FT4 3.06 uIU/mL (0.47-4.68)
[2024-12-18 13:12] LABS: Vitamin B12 684 pg/mL (239-931)
[2024-12-18 17:24] LABS: Microalbumi Creatinin Ratio Ur 7.0 ug/mg CR (<30)
== END ==
PROVIDERS: PCP Family Medicine; Referring Provider Family Medicine; Visit Provider Internal Medicine
DX: Z12.5 Encounter for screening for malignant neoplasm of prostate (principal)
CPT/HCPCS: 36415; 80053; 80061; 82043; 82570; 82607; 83036; 84153; 84443; 84550; 85027